=== PATIENT | female | born 1965 | race Caucasian/White ===

== ENCOUNTER 2024-10-29 10:17 | Inpatient (IN) | payer MEDICAID, MEDICARE ==
--- NOTE | 2024-10-29 11:07 | ED ---
General Adult HPI - General Chief complaint: Altered Mental Status Stated complaint: Mental health Time Seen by Provider: 10/29/24 10:38 Source: patient, family, RN notes reviewed Mode of arrival: ambulatory Limitations: altered mental status - History of Present Illness Initial comments: 59-year-old female presents to the emergency department with son for evaluation of altered mental status. Her family reports that about 3 weeks ago the patient was admitted to inpatient psychiatric treatment. They report that since she has been discharged at the end of September the patient continues to have altered mental status which seems to be worsening. Patient's family reports that the patient continues to make comments about "a man at the gas station" and they are unsure what she is referring to. She admits to hallucinations. - Related Data Home Medications Medication Instructions Recorded Confirmed Albuterol Inhaler [Ventolin Hfa 2 puff INHALATION RT-Q4H PRN 10/29/24 10/29/24 Inhaler] Atorvastatin [Lipitor] 20 mg PO HS 10/29/24 10/29/24 INSULIN LISPRO (HumaLOG) [humaLOG] 4 units SQ TID-W/MEALS 10/29/24 10/29/24 Insulin Glargine,Hum.rec.anlog 10 units SQ DAILY 10/29/24 10/29/24 [Lantus Solostar Pen] Levothyroxine Sodium [Synthroid] 75 mcg PO DAILY 10/29/24 10/29/24 Lurasidone [Latuda] 20 mg PO DAILY 10/29/24 10/29/24 cloZAPine [Clozaril] 150 mg PO DAILY 10/29/24 10/29/24 cloZAPine [Clozaril] 200 mg PO HS 10/29/24 10/29/24 clonazePAM [KlonoPIN] 0.5 mg PO TID 10/29/24 10/29/24 lisinopriL [Zestril] 10 mg PO DAILY 10/29/24 10/29/24 traZODone HCL [Desyrel] 50 mg PO HS 10/29/24 10/29/24 Allergies Allergy/AdvReac Type Severity Reaction Status Date / Time No Known Allergies Allergy Verified 10/29/24 16:01 Review of Systems ROS Statement: Those systems with pertinent positive or pertinent negative responses have been documented in the HPI. ROS Other: All systems not noted in ROS Statement are negative. Past Medical History Past Medical History: Diabetes Mellitus, Hyperlipidemia, Hypertension Past Surgical History: Appendectomy Past Psychological History: Schizophrenia Smoking Status: Current every day smoker Past Alcohol Use History: None Reported Past Drug Use History: None Reported General Exam Limitations: altered mental status General appearance: alert, in no apparent distress, anxious Head exam: Present: atraumatic, normocephalic, normal inspection Eye exam: Present: normal appearance, PERRL, EOMI. Absent: scleral icterus, conjunctival injection, periorbital swelling ENT exam: Present: normal exam, mucous membranes moist Respiratory exam: Present: normal lung sounds bilaterally. Absent: respiratory distress, wheezes, rales, rhonchi, stridor Cardiovascular Exam: Present: regular rate, normal rhythm, normal heart sounds. Absent: systolic murmur, diastolic murmur, rubs, gallop, clicks Extremities exam: Present: normal inspection, full ROM, normal capillary refill. Absent: tenderness, pedal edema, joint swelling, calf tenderness Neurological exam: Present: alert Psychiatric exam: Present: normal affect, normal mood Skin exam: Present: warm, dry, intact, normal color. Absent: rash Course Vital Signs 10/29/24 10/29/24 10:21 17:31 Temperature 97.3 F L 97.7 F Pulse Rate 116 H Pulse Rate [ 108 H Right] Respiratory 20 16 Rate Blood Pressure 115/60 Blood Pressure 136/58 [Left Arm] O2 Sat by Pulse 100 98 Oximetry Medical Decision Making - Medical Decision Making Was pt. sent in by a medical professional or institution ([facility], [facility], urgent care, hospital, or intermediate...) When possible be specific @ -No Did you speak to anyone other than the patient for history (EMS, parent, family, police, friend...)? What history was obtained from this source @ -No Did you review nursing and triage notes (agree or disagree)? Why? @ -I reviewed and agree with nursing and triage notes Were old charts reviewed (outside hosp., previous admission, EMS record, old EKG, old radiological studies, urgent care reports/EKG's, intermediate records)? Report findings @ -No old charts were reviewed Differential Diagnosis (chest pain, altered mental status, abdominal pain women, abdominal pain men, vaginal bleeding, weakness, fever, dyspnea, syncope, he adache, dizziness, GI bleed, back pain, seizure, CVA, palpatations, mental health, musculoskeletal)? @ -Differential Altered Mental Status: Hypoglycemia, DKA, hypercapnia, ETOH, overdose, CO poisoning, trauma, myxedema coma, HTN encephalopathy, infection, encephalitis, psychosis, intercranial hemo rrhage, hepatic encephalopathy, meningitis, CVA, this is not meant to be an all- inclusive list EKG interpreted by me (3pts min.). @ -None] X-rays interpreted by me (1pt min.). @ -None done CT interpreted by me (1pt min.). @ -CT brain shows no acute process U/S interpreted by me (1pt. min.). @ -None done What testing was considered but not performed or refused? (CT, X-rays, U/S, labs)? Why? @ -None What meds were considered but not given or refused? Why? @ -None Did you discuss the management of the patient with other professionals (professionals i.e. , PA, [employer]IP[employer]TER, lab, RT, psych nurse, social services technician, reading assistant, teacher, armed security officer, telephonic case manager)? Give summary @ -[Discussed case with EPS recommending inpatient treatment Was smoking cessation discussed for >3mins.? @ -No Was critical care preformed (if so, how long)? @ -No Were there social determinants of health that impacted care today? How? (Homelessness, low income, unemployed, alcoholism, drug addiction, transportation, low edu. Level, literacy, decrease access to med. care, care home, rehab)? @ -No Was there de-escalation of care discussed even if they declined (Discuss DNR or withdrawal of care, Hospice)? DNR status @ -No What co-morbidities impacted this encounter? (DM, HTN, Smoking, COPD, CAD, Cancer, CVA, ARF, Chemo, Hep., AIDS, mental health diagnosis, sleep apnea, morbid obesity)? @ -None Was patient admitted / discharged? Hospital course, mention meds given and route, prescriptions, significant lab abnormalities, going to OR and other pertinent info. @ -Admitted to psychiatric unit. Patient presented to the emergency department for confusion and hallucinations. Laboratory studies obtainedIncluding CBC, CMP, UA showing no actionable abnormality UA shows no evidence of infectious process. Urine drug screen positive for benzodiazepines. CT brain was obtained showing no acute process. Because the patient symptomatology patient was evaluated by EPS after being medically cleared. Inpatient treatment was recommended. Case discussed with Dr. Lopez. Undiagnosed new problem with uncertain prognosis? @ -No Drug Therapy requiring intensive monitoring for toxicity (Heparin, Nitro, Insulin, Cardizem)? @ -No Were any procedures done? @ -No Diagnosis/symptom? @ -Acute psychosis Acute, or Chronic, or Acute on Chronic? @ -Acute Uncomplicated (without systemic symptoms) or Complicated (systemic symptoms)? @ -Application Side effects of treatment? @ -No Exacerbation, Progression, or Severe Exacerbation? @ -No Poses a threat to life or bodily function? How? (Chest pain, [place], [place], pneumonia, PE, COPD, DKA, ARF, appy, cholecystitis, CVA, Diverticulitis, Homicidal, Suicidal, threat to staff... and all critical care pts) @ -No - Lab Data Result diagrams: 10/29/24 12:13 10/29/24 12:13 Lab Results 10/29/24 10/29/24 10/29/24 Range/Units 11:20 11:20 12:13 WBC 8.6 (3.8-10.6) k/uL RBC 4.03 (3.80-5.40) m/uL Hgb 12.5 (11.4-16.0) gm/dL Hct 37.5 (34.0-46.0) % MCV 93.0 (80.0-100.0) fL MCH 31.0 (25.0-35.0) pg MCHC 33.4 (31.0-37.0) g/dL RDW 12.9 (11.5-15.5) % Plt Count 327 (150-450) k/uL MPV 6.8 Neutrophils % 75 % Lymphocytes % 18 % Monocytes % 5 % Eosinophils % 1 % Basophils % 1 % Neutrophils # 6.4 (1.3-7.7) k/uL Lymphocytes # 1.6 (1.0-4.8) k/uL Monocytes # 0.4 (0-1.0) k/uL Eosinophils # 0.1 (0-0.7) k/uL Basophils # 0.0 (0-0.2) k/uL PT (10.0-12.5) sec INR (<1.2) APTT (22.0-30.0) sec Sodium (137-145) mmol/L Potassium (3.5-5.1) mmol/L Chloride (98-107) mmol/L Carbon Dioxide (22-30) mmol/L Anion Gap mmol/L BUN (7-17) mg/dL Creatinine (0.52-1.04) mg/dL Est GFR (CKD-EPI)AfAm (>60 ml/min/1.73 sqM) Est GFR (CKD-EPI)NonAf (>60 ml/min/1.73 sqM) Glucose (74-99) mg/dL Estimated Ave Glu mg/dL mg/dL Hemoglobin A1c (<=6.0) % Calcium (8.4-10.2) mg/dL Total Bilirubin (0.2-1.3) mg/dL AST (14-36) U/L ALT (4-34) U/L Alkaline Phosphatase (38-126) U/L Total Protein (6.3-8.2) g/dL Albumin (3.5-5.0) g/dL Triglycerides (0.00-149.00) mg/dL Cholesterol (0.00-200.00) mg/dL LDL Cholesterol, Calc (0.0-131.0) mg/dL VLDL Cholesterol, Calc (5.00-40.00) mg/dL HDL Cholesterol (40.00-60.00) mg/dL Cholesterol/HDL Ratio Ratio TSH (0.465-4.680) mIU/L Urine Color Colorless Urine Appearance Clear (Clear) Urine pH 6.0 (5.0-8.0) Ur Specific [place] 1.003 (1.001-1.035) Urine Protein Negative (Negative) Urine Glucose (UA) 4+ H (Negative) Urine Ketones Negative (Negative) Urine Blood Negative (Negative) Urine Nitrite Negative (Negative) Urine Bilirubin Negative (Negative) Urine Urobilinogen <2.0 (<2.0) mg/dL Ur Leukocyte Esterase Negative (Negative) Urine Opiates Screen Not Detected (NotDetected) Ur Oxycodone Screen Not Detected (NotDetected) Urine Methadone Screen Not Detected (NotDetected) Ur Barbiturates Screen Not Detected (NotDetected) U Tricyclic Antidepress Not Detected (NotDetected) Ur Phencyclidine Scrn Not Detected (NotDetected) Ur Amphetamines Screen Not Detected (NotDetected) U Methamphetamines Scrn Not Detected (NotDetected) U Benzodiazepines Scrn Detected H (NotDetected) Urine Cocaine Screen Not Detected (NotDetected) U Marijuana (THC) Screen Not Detected (NotDetected) SARS-CoV-2 (PCR) (Not Detectd) 10/29/24 10/29/24 10/29/24 Range/Units 12:13 12:13 12:13 WBC (3.8-10.6) k/uL RBC (3.80-5.40) m/uL Hgb (11.4-16.0) gm/dL Hct (34.0-46.0) % MCV (80.0-100.0) fL MCH (25.0-35.0) pg MCHC (31.0-37.0) g/dL RDW (11.5-15.5) % Plt Count (150-450) k/uL MPV Neutrophils % % Lymphocytes % % Monocytes % % Eosinophils % % Basophils % % Neutrophils # (1.3-7.7) k/uL Lymphocytes # (1.0-4.8) k/uL Monocytes # (0-1.0) k/uL Eosinophils # (0-0.7) k/uL Basophils # (0-0.2) k/uL PT 10.4 (10.0-12.5) sec INR 0.9 (<1.2) APTT 21.7 L (22.0-30.0) sec Sodium 135 L (137-145) mmol/L Potassium 4.6 (3.5-5.1) mmol/L Chloride 105 (98-107) mmol/L Carbon Dioxide 20 L (22-30) mmol/L Anion Gap 10 mmol/L BUN 10 (7-17) mg/dL Creatinine 0.88 (0.52-1.04) mg/dL Est GFR (CKD-EPI)AfAm 83 (>60 ml/min/1.73 sqM) Est GFR (CKD-EPI)NonAf 72 (>60 ml/min/1.73 sqM) Glucose 284 H (74-99) mg/dL Estimated Ave Glu mg/dL 177 mg/dL Hemoglobin A1c 7.8 H (<=6.0) % Calcium 9.6 (8.4-10.2) mg/dL Total Bilirubin 0.7 (0.2-1.3) mg/dL AST 22 (14-36) U/L ALT 43 H (4-34) U/L Alkaline Phosphatase 131 H (38-126) U/L Total Protein 6.2 L (6.3-8.2) g/dL Albumin 4.1 (3.5-5.0) g/dL Triglycerides (0.00-149.00) mg/dL Cholesterol (0.00-200.00) mg/dL LDL Cholesterol, Calc (0.0-131.0) mg/dL VLDL Cholesterol, Calc (5.00-40.00) mg/dL HDL Cholesterol (40.00-60.00) mg/dL Cholesterol/HDL Ratio Ratio TSH 0.721 (0.465-4.680) mIU/L Urine Color Urine Appearance (Clear) Urine pH (5.0-8.0) Ur Specific [place] (1.001-1.035) Urine Protein (Negative) Urine Glucose (UA) (Negative) Urine Ketones (Negative) Urine Blood (Negative) Urine Nitrite (Negative) Urine Bilirubin (Negative) Urine Urobilinogen (<2.0) mg/dL Ur Leukocyte Esterase (Negative) Urine Opiates Screen (NotDetected) Ur Oxycodone Screen (NotDetected) Urine Methadone Screen (NotDetected) Ur Barbiturates Screen (NotDetected) U Tricyclic Antidepress (NotDetected) Ur Phencyclidine Scrn (NotDetected) Ur Amphetamines Screen (NotDetected) U Methamphetamines Scrn (NotDetected) U Benzodiazepines Scrn (NotDetected) Urine Cocaine Screen (NotDetected) U Marijuana (THC) Screen (NotDetected) SARS-CoV-2 (PCR) (Not Detectd) 10/29/24 10/29/24 Range/Units 12:13 15:54 WBC (3.8-10.6) k/uL RBC (3.80-5.40) m/uL Hgb (11.4-16.0) gm/dL Hct (34.0-46.0) % MCV (80.0-100.0) fL MCH (25.0-35.0) pg MCHC (31.0-37.0) g/dL RDW (11.5-15.5) % Plt Count (150-450) k/uL MPV Neutrophils % % Lymphocytes % % Monocytes % % Eosinophils % % Basophils % % Neutrophils # (1.3-7.7) k/uL Lymphocytes # (1.0-4.8) k/uL Monocytes # (0-1.0) k/uL Eosinophils # (0-0.7) k/uL Basophils # (0-0.2) k/uL PT (10.0-12.5) sec INR (<1.2) APTT (22.0-30.0) sec Sodium (137-145) mmol/L Potassium (3.5-5.1) mmol/L Chloride (98-107) mmol/L Carbon Dioxide (22-30) mmol/L Anion Gap mmol/L BUN (7-17) mg/dL Creatinine (0.52-1.04) mg/dL Est GFR (CKD-EPI)AfAm (>60 ml/min/1.73 sqM) Est GFR (CKD-EPI)NonAf (>60 ml/min/1.73 sqM) Glucose (74-99) mg/dL Estimated Ave Glu mg/dL mg/dL Hemoglobin A1c (<=6.0) % Calcium (8.4-10.2) mg/dL Total Bilirubin (0.2-1.3) mg/dL AST (14-36) U/L ALT (4-34) U/L Alkaline Phosphatase (38-126) U/L Total Protein (6.3-8.2) g/dL Albumin (3.5-5.0) g/dL Triglycerides 122.00 (0.00-149.00) mg/dL Cholesterol 100.00 (0.00-200.00) mg/dL LDL Cholesterol, Calc 24.0 (0.0-131.0) mg/dL VLDL Cholesterol, Calc 24.40 (5.00-40.00) mg/dL HDL Cholesterol 51.60 (40.00-60.00) mg/dL Cholesterol/HDL Ratio 1.94 Ratio TSH (0.465-4.680) mIU/L Urine Color Urine Appearance (Clear) Urine pH (5.0-8.0) Ur Specific [place] (1.001-1.035) Urine Protein (Negative) Urine Glucose (UA) (Negative) Urine Ketones (Negative) Urine Blood (Negative) Urine Nitrite (Negative) Urine Bilirubin (Negative) Urine Urobilinogen (<2.0) mg/dL Ur Leukocyte Esterase (Negative) Urine Opiates Screen (NotDetected) Ur Oxycodone Screen (NotDetected) Urine Methadone Screen (NotDetected) Ur Barbiturates Screen (NotDetected) U Tricyclic Antidepress (NotDetected) Ur Phencyclidine Scrn (NotDetected) Ur Amphetamines Screen (NotDetected) U Methamphetamines Scrn (NotDetected) U Benzodiazepines Scrn (NotDetected) Urine Cocaine Screen (NotDetected) U Marijuana (THC) Screen (NotDetected) SARS-CoV-2 (PCR) Not Detected (Not Detectd) Disposition Clinical Impression: Acute psychosis Disposition: TRANSFER TO PSYCH HOSP/UNIT Condition: Stable Is patient prescribed a controlled substance at d/c from ED?: No
[2024-10-29 11:26] LABS: Appearance,Urine Clear (Clear); Bilirubin,Urine Negative (Negative); Blood,Urine Negative (Negative); Color,Urine Colorless; Glucose,Urine (UA) 4+ (Negative); Ketones,Urine Negative (Negative); Leukocyte Esterase,Urine Negative (Negative); Nitrite,Urine Negative (Negative); Protein,Urine Negative (Negative); Specific Gravity,Urine 1.003 (1.001-1.035); Urobilinogen,Urine <2.0 mg/dL (<2.0)
[2024-10-29 11:36] LABS: Amphetamine Screen,Urine Not Detected (NotDetected); Barbiturate Screen,Urine Not Detected (NotDetected); Benzodiazepines Screen,Urine Detected (NotDetected); Cocaine Screen,Urine Not Detected (NotDetected); Methadone Screen, Urine Not Detected (NotDetected); Opiate Screen,Urine Not Detected (NotDetected); Oxycodone Screen, Urine Not Detected (NotDetected); Phencyclidine Screen,Urine Not Detected (NotDetected); Tricyclic Antidepressant,Urine Not Detected (NotDetected); Urn Cannabinoid Scrn Not Detected (NotDetected)
--- NOTE | 2024-10-29 11:39 | CT ---
EXAMINATION TYPE: CT brain wo con DATE OF EXAM: 10/29/2024 11:35 AM COMPARISON: None. CLINICAL INDICATION: Female, 59 years old with history of Altered mental status, ams TECHNIQUE: CT of the brain is performed utilizing 3 mm thick sections through the posterior fossa and 3 mm thick sections through the remaining calvarium. Study is performed within 24 hours of arrival to the hospital. Contrast used: mL of , (none if empty) CT DLP: 1125.4 mGycm, Automated exposure control for dose reduction was used. FINDINGS: No abnormal hyperdensity is present to suggest an acute intracranial hemorrhage. No mass lesion is evident. No acute infarcts are evident. Ventricles and sulci are mildly prominent for the patient age compatible some age-related atrophy. Paranasal sinuses and mastoid air cells within the [id number] are clear. IMPRESSION: 1. No acute intracranial process. Follow up MRI can be performed as clinically indicated. 2. Mild age-related atrophy [facility], , 10/29/2024 11:37 AM
[2024-10-29 12:18] LABS: Basophils % (A) 1 %; Eosinophils # (A) 0.1 k/uL (0-0.7); Eosinophils % (A) 1 %; HCT 37.5 % (34.0-46.0); HGB 12.5 gm/dL (11.4-16.0); Lymphocytes # (A) 1.6 k/uL (1.0-4.8); Lymphocytes % (A) 18 %; MCHC 33.4 g/dL (31.0-37.0); Mean Platelet Volume 6.8; Monocytes # (A) 0.4 k/uL (0-1.0); Monocytes % (A) 5 %; Neutrophils # (A) 6.4 k/uL (1.3-7.7); Neutrophils % (A) 75 %; Platelet Count 327 k/uL (150-450); RBC 4.03 m/uL (3.80-5.40); RDW 12.9 % (11.5-15.5); WBC 8.6 k/uL (3.8-10.6)
[2024-10-29 12:34] LABS: ALT 43 U/L (4-34); AST 22 U/L (14-36); African American GFR (CKD) 83 (>60 ml/min/1.73 sqM); Albumin 4.1 g/dL (3.5-5.0); Alkaline Phosphatase 131 U/L (38-126); Anion Gap 10 mmol/L; Blood Urea Nitrogen 10 mg/dL (7-17); Calcium 9.6 mg/dL (8.4-10.2); Carbon Dioxide 20 mmol/L (22-30); Chloride 105 mmol/L (98-107); Glucose 284 mg/dL (74-99); Non-African American GFR(CKD) 72 (>60 ml/min/1.73 sqM); Potassium 4.6 mmol/L (3.5-5.1); Sodium 135 mmol/L (137-145); Total Bilirubin 0.7 mg/dL (0.2-1.3); Total Protein 6.2 g/dL (6.3-8.2)
[2024-10-29 12:35] LABS: INR 0.9 (<1.2); Partial Thromboplastin Time 21.7 sec (22.0-30.0); Prothrombin Time 10.4 sec (10.0-12.5)
[2024-10-29] MEDS ORDERED: MAGNESIUM HYDROXIDE 2,400 MG/30 ML CUP PO PRN (17:32)
[2024-10-29] MEDS ORDERED: MAG HYDROX/AL HYDROX/SIMETH 355 ML BOTTLE PO PRN (17:32)
[2024-10-29] MEDS ORDERED: HALOPERIDOL LACTATE 5 MG/ML 1 ML VIAL IM PRN (17:32)
[2024-10-29] MEDS ORDERED: ALBUTEROL INHALER 60 PUFF/8 GM INHALER (MHU) INHALATION PRN (17:35)
[2024-10-29] MEDS: clonazePAM 0.5 MG TAB PO SCH (18:53)
[2024-10-29] MEDS: INSULIN ASPART (NovoLOG) 100 UNIT/ML VIAL SQ SCH (18:53)
[2024-10-29 20:22] LABS: Glucose,Whole Blood 270 mg/dL (70-110)
[2024-10-29] MEDS: ATORVASTATIN 20 MG TAB PO SCH (20:25)
[2024-10-29] MEDS: traZODone HCL 50 MG TAB PO SCH (20:25)
[2024-10-29] MEDS: cloZAPine 100 MG TAB PO SCH (20:26)
[2024-10-29] MEDS: haloperidoL 5 MG TAB PO PRN (21:45)
[2024-10-30] MEDS: LEVOTHYROXINE 75 MCG TAB PO SCH (06:30)
[2024-10-30] MEDS: INSULIN ASPART (NovoLOG) 100 UNIT/ML VIAL SQ SCH (08:06)
[2024-10-30 08:07] LABS: Glucose,Whole Blood 219 mg/dL (70-110)
[2024-10-30] MEDS: cloZAPine 100 MG TAB PO SCH (08:08)
[2024-10-30] MEDS: LURASIDONE 20 MG TAB PO SCH (08:08)
[2024-10-30] MEDS: INSULIN DETEMIR (LEVEMIR) 100 UNIT/ML SYR SQ SCH (08:08)
[2024-10-30] MEDS: lisinopriL 10 MG TAB PO SCH (08:08)
--- NOTE | 2024-10-30 10:43 | P.HP ---
Psychiatric H&P - . H&P Date: 10/30/24 History & Physical: Allergies Allergy/AdvReac Type Severity Reaction Status Date / Time No Known Allergies Allergy Verified 10/29/24 16:01 Vital Signs Temp 98 F 10/30/24 07:05 Pulse 74 10/30/24 07:05 Resp 16 10/29/24 17:31 BP 101/62 10/30/24 07:05 Pulse Ox 98 10/30/24 07:05 FiO2 Intake & Output 10/29/24 10/30/24 10/30/24 18:59 06:59 18:59 Weight 73.346 kg Laboratory Last Values WBC 8.6 k/uL (3.8-10.6) 10/29/24 12:13 RBC 4.03 m/uL (3.80-5.40) 10/29/24 12:13 Hgb 12.5 gm/dL (11.4-16.0) 10/29/24 12:13 Hct 37.5 % (34.0-46.0) 10/29/24 12:13 MCV 93.0 fL (80.0-100.0) 10/29/24 12:13 MCH 31.0 pg (25.0-35.0) 10/29/24 12:13 MCHC 33.4 g/dL (31.0-37.0) 10/29/24 12:13 RDW 12.9 % (11.5-15.5) 10/29/24 12:13 Plt Count 327 k/uL (150-450) 10/29/24 12:13 MPV 6.8 10/29/24 12:13 Neutrophils % 75 % 10/29/24 12:13 Lymphocytes % 18 % 10/29/24 12:13 Monocytes % 5 % 10/29/24 12:13 Eosinophils % 1 % 10/29/24 12:13 Basophils % 1 % 10/29/24 12:13 Neutrophils # 6.4 k/uL (1.3-7.7) 10/29/24 12:13 Lymphocytes # 1.6 k/uL (1.0-4.8) 10/29/24 12:13 Monocytes # 0.4 k/uL (0-1.0) 10/29/24 12:13 Eosinophils # 0.1 k/uL (0-0.7) 10/29/24 12:13 Basophils # 0.0 k/uL (0-0.2) 10/29/24 12:13 PT 10.4 sec (10.0-12.5) 10/29/24 12:13 INR 0.9 (<1.2) 10/29/24 12:13 APTT 21.7 sec (22.0-30.0) L 10/29/24 12:13 Sodium 135 mmol/L (137-145) L 10/29/24 12:13 Potassium 4.6 mmol/L (3.5-5.1) 10/29/24 12:13 Chloride 105 mmol/L (98-107) 10/29/24 12:13 Carbon Dioxide 20 mmol/L (22-30) L 10/29/24 12:13 Anion Gap 10 mmol/L 10/29/24 12:13 BUN 10 mg/dL (7-17) 10/29/24 12:13 Creatinine 0.88 mg/dL (0.52-1.04) 10/29/24 12:13 Est GFR (CKD-EPI)AfAm 83 (>60 ml/min/1.73 sqM) 10/29/24 12:13 Est GFR (CKD-EPI)NonAf 72 (>60 ml/min/1.73 sqM) 10/29/24 12:13 Glucose 284 mg/dL (74-99) H 10/29/24 12:13 POC Glucose (mg/dL) 270 mg/dL (70-110) H 10/29/24 20:21 POC Glu Security Incident Handler ID Macy Mary 10/29/24 20:21 Calcium 9.6 mg/dL (8.4-10.2) 10/29/24 12:13 Total Bilirubin 0.7 mg/dL (0.2-1.3) 10/29/24 12:13 AST 22 U/L (14-36) 10/29/24 12:13 ALT 43 U/L (4-34) H 10/29/24 12:13 Alkaline Phosphatase 131 U/L (38-126) H 10/29/24 12:13 Total Protein 6.2 g/dL (6.3-8.2) L 10/29/24 12:13 Albumin 4.1 g/dL (3.5-5.0) 10/29/24 12:13 TSH 0.721 mIU/L (0.465-4.680) 10/29/24 12:13 Urine Color Colorless 10/29/24 11:20 Urine Appearance Clear (Clear) 10/29/24 11:20 Urine pH 6.0 (5.0-8.0) 10/29/24 11:20 Ur Specific Arvin 1.003 (1.001-1.035) 10/29/24 11:20 Urine Protein Negative (Negative) 10/29/24 11:20 Urine Glucose (UA) 4+ (Negative) H 10/29/24 11:20 Urine Ketones Negative (Negative) 10/29/24 11:20 Urine Blood Negative (Negative) 10/29/24 11:20 Urine Nitrite Negative (Negative) 10/29/24 11:20 Urine Bilirubin Negative (Negative) 10/29/24 11:20 Urine Urobilinogen <2.0 mg/dL (<2.0) 10/29/24 11:20 Ur Leukocyte Esterase Negative (Negative) 10/29/24 11:20 Urine Opiates Screen Not Detected (NotDetected) 10/29/24 11:20 Ur Oxycodone Screen Not Detected (NotDetected) 10/29/24 11:20 Urine Methadone Screen Not Detected (NotDetected) 10/29/24 11:20 Ur Barbiturates Screen Not Detected (NotDetected) 10/29/24 11:20 U Tricyclic Antidepress Not Detected (NotDetected) 10/29/24 11:20 Ur Phencyclidine Scrn Not Detected (NotDetected) 10/29/24 11:20 Ur Amphetamines Screen Not Detected (NotDetected) 10/29/24 11:20 U Methamphetamines Scrn Not Detected (NotDetected) 10/29/24 11:20 U Benzodiazepines Scrn Detected (NotDetected) H 10/29/24 11:20 Urine Cocaine Screen Not Detected (NotDetected) 10/29/24 11:20 U Marijuana (THC) Screen Not Detected (NotDetected) 10/29/24 11:20 SARS-CoV-2 (PCR) Not Detected (Not Detectd) 10/29/24 15:54 10/30/24 08:03 Dictation was produced using dragon dictation software. Please excuse any grammatical, word or spelling errors. IDENTIFYING DATA: Patient is a 59 years old female with past psychiatric history of schizophrenia presented to the ER with her son for altered mental status evaluation. HPI: Patient presented to the hospital with her son for altered mental status evaluation. Family were concerned about anxiety and hallucination, patient reported that she has been having increase in anxiety, disorganized thought process was noted throughout the interview, she required frequent redirection. Reported that there is someone at the gas station " follows me around with piercing eyes." Denied suicidal, homicidal thoughts or behavior, denied auditory or visual hallucination. The patient family reported that about 3 weeks ago patient was admitted to inpatient psychiatric hospital, and she was discharged at the end of September, reported that since then patient mental status has been worsening. They reported that she was making a comment about " a man at the gas station" and they was not sure what she was referring to. Report patient medication was adjusted during the last hospitalization, Latuda was discontinued and she was started on risperidone however that was not helping and had outpatient psychiatrist restart her back on Latuda 20 mg and discontinued risperidone. They kept her on clozapine 150 mg daily and 200 mg at night which she has been compliant with per report. Upon evaluation in the unit patient was at the nurses station asking them to talk to her , she was fixated on talking to her and to "Dr. Suazo" she claimed to be her outpatient psychiatrist. The patient was redirected and agreed to speak with the principal technical writer in the office. She states that "I can't tell you, I want to talk to Dr. Tanner, I'm loosing my mind, everyone staring at me." The patient was reassured about her safety. She states that her and her son brought her into the hospital yesterday since " I was losing my mind" and she could not elaborate more on that. She states " I have ECT scheduled" and could not elaborate on that as well and reported she had multiple "shock therapy" in the past. States that she has been taking her medication and reported her to give it to her every day. Reported that she has been feeling down, depressed, reported her sleep to be not that great, admitted to good appetite, she denied any current suicidal, self- harm or homicidal thoughts or behavior. Denied any previous history of suicide. Patient was so paranoid and reported that she has been hearing her own thoughts for all of her life, reported that her will know more. The patient was fixated on calling her , she stood up multiple times and wanted to use the phone to talk to her . Thought process was circumstantial, nonsensical and illogical. Patient was repeating some of the statements over and over " I see you, I see you" " I want to speak to my doctor, I want to speak to my doctor." The patient was oriented to place, person. The patient was irritated and stood up and was fixated on calling her and the interview was concluded at that time. She seemed to be confused and disorganized. Reported that she has been smoking half a pack for years, she denied using any licit substance, cannabis or alcohol. PAST PSYCHIATRIC HISTORY: - Inpatient Hospitalizations: Reported that she was hospitalized multiple times in the past, per report hospitalization was 3 weeks ago - Outpatient Care: pt reported that she has been seeing "Dr. Suazo" and she could not tell what facility they work for - Current Psychotropics: Clozapine 150 mg p.o. daily, 200 mg at bedtime, Latuda 20 mg p.o. daily, Klonopin 0.5 mg 3 times daily, trazodone 50 mg at bedtime. The patient medication was confirmed with her family on admission and they reported she has been compliant with her medication. - Prior Psychotropics/Therapy: Patient reported that she had multiple shock therapy in the past - Prior Psychiatric dx: Schizophrenia - Suicidal Attempts: Patient denied any previous suicidal attempts PMH: as per ER note Past Medical History: Diabetes Mellitus, Hyperlipidemia, Hypertension Past Surgical History: Appendectomy Past Psychological History: Schizophrenia Smoking Status: Current every day smoker Past Alcohol Use History: None Reported Past Drug Use History: None Reported ALLERGIES: as per EMR CHEMICAL DEPENDENCY HISTORY: as per HPI - Tobacco: Patient reported that she smoked few cigarettes every now and then - Alcohol: Patient denies - Illicit Drugs: Patient denies - Cannabis: Patient denies FAMILY PSYCHIATRIC/SUBSTANCE USE HISTORY: Patient reported that most of her family has schizophrenia and bipolar disorder. SOCIAL HISTORY: Patient was born and raised in [facility]. for 37 years, has 3 adult children and 2 grandchildren. Dropped out at 10th grade. 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 MENTAL STATUS EXAM: General Appearance: Patient appears to be older than stated age is alert, the patient was uncooperative, required multiple redirection, interview was terminated early since patient was fixated on calling her . Patient appears to have fair hygiene and grooming. Behavior: Patient is seated, she stood up multiple times, irritable, fixated on calling her and her outpatient doctor, has bizarre and disorganized behavior Speech: Patient's speech is fluent and nonpressured. She was repeating certain statements at time Mood/Affect: Patient reports their mood is " I am losing my mind," affect is labile, congruent and constricted. Suicidality/Homicidality: Patient denies having any homicidal ideation intent or plan. Denies any suicidal ideations intent or plan Perceptions: Patient denies any visual hallucinations and denies any auditory hallucinations, however she reported that she has been hearing her own thoughts for years Though content/process: Thought process is circumstantial, illogical and nonsensical, patient has disorganized and bizarre thought content, delusional at time and paranoid Memory and concentration: AOX2, grossly intact for the purposes of this session. Can not spell "WORLD" backwards Judgment and insight: poor STRENGTHS/WEAKNESSES: strength is that patient is resilient. Weakness is that patient has poor judgment and is impulsive INTELLECT: average IMPRESSIONS: Patient is a 59 years old female with past psychiatric history of schizophrenia presented to the ER with her son for altered mental status evaluation. The patient was admitted after family has been concerned about her progress, she has been demonstrating bizarre, disorganized thoughts and behavior. Thought process is circumstantial, illogical and nonsensical. The patient reported a history of ECT in the past. Family confirmed her current medication which include clozapine, Latuda and Klonopin which she has been compliant with. She has a reported history of multiple inpatient psychiatric hospitalization, and she has a reported history of schizophrenia. -Schizophrenia PLAN: -Patient is admitted under voluntary status to MHU for stabilization of psychiatric symptoms and safety. Patient has signed adult voluntary form and medication consent and is placed in patient's chart. We will monitor for the patient compliance with medication and may consider involuntary status if needed. -Medications : Will continue home medication which include Clozapine 150 mg p.o. daily, and 200 mg at bedtime Latuda 20 mg p.o. daily Klonopin 0.5 mg 3 times daily Trazodone 50 mg p.o. at bedtime - Haldol PRN for agitation/aggression -Patient was informed of the risks, benefits and side effects of the medication and patient verbally consented to taking the medications. Patient signed med consent form and was placed in chart. -Collateral information from the patient and family and her outpatient team will be helpful -Labs ordered, clozapine level still pending -Internal Medicine consult to perform medical evaluation and physical. -NRT - not needed as patient does not smoke -SW on board for discharge planning. Encourage patient to participate in groups to work on coping skills. 10/30/24 10:40
[2024-10-30 11:31] LABS: Chol/HDL Ratio 1.94 Ratio
[2024-10-30 12:40] LABS: Glucose,Whole Blood 296 mg/dL (70-110)
--- NOTE | 2024-10-30 14:59 | P.CONS ---
History of Present Illness - Reason for Consult Consult date: 10/30/24 Medical management Requesting physician: Emanuel Braswell - Chief Complaint Confused - History of Present Illness 59-year-old patient, follows with Dr. Smita June. Medical conditions include diabetes, hyperlipidemia, hypertension, hypothyroid. Also known history of bipolar schizophrenia. Smokes about half a pack a day Patient was brought into the ER by the family. Patient is rather disorganized thought. Wean from 1 topic to the other not making sense. As per the psychiatry notes patient interview had to be stopped because of the same. For me patient is able to answer simple questions. Does use albuterol inhaler as needed. Since missing her cigarettes. Wants to smoke outside. Appetite is fair. Sleeps quite a bit. Denies any pain. No fever no chills. Occasional cough. No respiratory symptoms otherwise. Review of systems: GEN.: Tired EYES: None HEENT: None NECK: None RESPIRATORY: As above] CARDIOVASCULAR: None GASTROINTESTINAL: None GENITOURINARY: None MUSCULOSKELETAL: None LYMPHATICS: None HEMATOLOGICAL: None PSYCHIATRY: Anxious, disordered thoughts NEUROLOGICAL: None Social history: Lives with the . 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 Smokes half a pack a day. Physical examination: VITAL SIGNS: 98, 74, 16, 101 x 62, 98% room air GENERAL: BMI 25.3, laying in bed awake comfortable. EYES: Pupils equal. Conjunctiva zeynep l. HEENT: External appearance of nose and ears normal, oral cavity grossly normal. NECK: JVD not raised; masses not palpable. HEART: First and second heart sounds are normal; no edema. LUNGS: Respiratory rate normal; clear to auscultation. ABDOMEN: Soft, nontender, liver spleen not palpable, no masses palpable. PSYCH: Patient currently able to hold a simple conversation. Referred to Dr. Ellis in. More detailed examination per psychiatry. l. MUSCULOSKELETAL:No Clubbing/cyanosis;muscles-grossly intact NEUROLOGICAL: Cranial nerves grossly intact; no facial asymmetry, power and sensation grossly intact. LYMPHATICS: No lymph nodes palpable in the axilla and neck INVESTIGATIONS, reviewed in the clinical context: October 29, 2024: White count 8.6 hemoglobin 12.5 platelets 327 sodium 135 potassium 4.6 creatinine 0.88 LDL 24 TSH 0.7 COVID-19 PCR not detected Assessment plan: -Schizophrenia with progression Medications per psychiatry -Chronic nicotine dependence, cigarette smoker Nicotine patch half a pack a day Diabetes mellitus type 2 chronically on insulin Patient on Lantus and Humalog scheduled. Follow Accu-Cheks sliding scale -Hyperlipidemia Lipitor 20 mg nightly -Hypothyroid Synthroid 75 mcg a day -Essential hypertension Zestril 10 mg a day Care was discussed with patient. Questions answered. Thank you Dr. Braswell Past Medical History Past Medical History: Diabetes Mellitus, Hyperlipidemia, Hypertension, Thyroid Disorder History of Any Multi-Drug Resistant Organisms: None Reported Past Surgical History: Appendectomy Past Anesthesia/Blood Transfusion Reactions: No Reported Reaction Smoking Status: Current every day smoker Medications and Allergies Home Medications Medication Instructions Recorded Confirmed Type Albuterol Inhaler [Ventolin Hfa 2 puff INHALATION RT-Q4H PRN 10/29/24 10/29/24 History Inhaler] Atorvastatin [Lipitor] 20 mg PO HS 10/29/24 10/29/24 History INSULIN LISPRO (HumaLOG) [humaLOG] 4 units SQ TID-W/MEALS 10/29/24 10/29/24 History Insulin Glargine,Hum.rec.anlog 10 units SQ DAILY 10/29/24 10/29/24 History [Lantus Solostar Pen] Levothyroxine Sodium [Synthroid] 75 mcg PO DAILY 10/29/24 10/29/24 History Lurasidone [Latuda] 20 mg PO DAILY 10/29/24 10/29/24 History cloZAPine [Clozaril] 150 mg PO DAILY 10/29/24 10/29/24 History cloZAPine [Clozaril] 200 mg PO HS 10/29/24 10/29/24 History clonazePAM [KlonoPIN] 0.5 mg PO TID 10/29/24 10/29/24 History lisinopriL [Zestril] 10 mg PO DAILY 10/29/24 10/29/24 History traZODone HCL [Desyrel] 50 mg PO HS 10/29/24 10/29/24 History Allergies Allergy/AdvReac Type Severity Reaction Status Date / Time No Known Allergies Allergy Verified 10/29/24 16:01 Physical Exam Vitals: Vital Signs Temp Pulse Resp BP Pulse Ox 10/30/24 07:05 98 F 74 101/62 98 10/29/24 17:31 97.7 F 108 H 16 136/58 98 Intake and Output 10/29/24 10/30/24 10/30/24 22:59 06:59 14:59 Other: Weight 73.346 kg Results CBC & Chem 7: 10/29/24 12:13 10/29/24 12:13 Labs: Abnormal Lab Results - Last 24 Hours (Table) 10/29/24 10/29/24 10/30/24 Range/Units 12:13 20:21 08:05 POC Glucose (mg/dL) 270 H 219 H (70-110) mg/dL Hemoglobin A1c 7.8 H (<=6.0) % 10/30/24 Range/Units 12:38 POC Glucose (mg/dL) 296 H (70-110) mg/dL Hemoglobin A1c (<=6.0) %
[2024-10-30] MEDS: NICOTINE 14MG/24HR PATCH TRANSDERM SCH (15:19)
[2024-10-30 17:45] LABS: Glucose,Whole Blood 177 mg/dL (70-110)
[2024-10-30 20:05] LABS: Glucose,Whole Blood 240 mg/dL (70-110)
[2024-10-31 07:24] LABS: Clozapine (Clozaril) 575 ng/mL (200-700); Norclozapine 494 ng/mL (200-700)
[2024-10-31 07:56] LABS: Glucose,Whole Blood 186 mg/dL (70-110)
[2024-10-31] MEDS: INSULIN DETEMIR (LEVEMIR) 100 UNIT/ML SYR SQ SCH (09:59)
--- NOTE | 2024-10-31 12:18 | P.PN ---
Progress Note - Text Progress Note Date: 10/31/24 Interval history: Patient was seen today laying in bed agreeable to speak to functional tester typewriters. She was fa irly talkative today, she was somewhat intrusive asking functional tester typewriters a lot of personal questions. Refusing to answer some questions. She had fairly poor insight poor judgment. Believes that she came to the hospital "for anxiety". She was alert and oriented x 2-3, did not noted a specific date. She did admit to recently being hospitalized and in a different psychiatric unit. She kept on the right a sking functional tester typewriters if he was another doctor's "corporate intern". She was over familiar with functional tester typewriters. Fairly talkative today. Claims that she is sleeping fairly, claims that she is taking her medications. Denied any auditory or visual hallucinations. Denied any suicidal homicidal ideations intent or plan. MENTAL STATUS EXAM: General Appearance: Patient appears to be older than stated age is alert, the patient was attempting to cooperate cooperative, required multiple redirection, interview was terminated early since patient was fixated on calling her . Patient appears to have fair hygiene and grooming. Behavior: Patient is laying in bed, has bizarre and disorganized behavior. [place] friendly Speech: Patient's speech is fluent and nonpressured. Fairly talkative Mood/Affect: Patient reports their mood is "ok" affect is labile, congruent Suicidality/Homicidality: Patient denies having any homicidal ideation intent or plan. Denies any suicidal ideations intent or plan Perceptions: Patient denies any visual hallucinations and denies any auditory hallucinations Though content/process: Thought process is circumstantial, illogical, patient has disorganized and bizarre thought content, intrusive at times Memory and concentration: AOX2-3, grossly intact for the purposes of this session. Can not spell "WORLD" backwards Judgment and insight: poor IMPRESSIONS: Schizoaffective disorder PLAN: -Patient is admitted under voluntary status to [facility]HU for stabilization of psychiatric symptoms and safety. Patient has signed adult voluntary form and medication consent and is placed in patient's chart. We will monitor for the patient compliance with medication and may consider involuntary status if needed. -Medications : Will attempt to cross titrate Clozapine with Invega to transition onto long-acting injection to help with compliance and stability. Crease Clozapine to 150 mg p.o. BID for psychosis/mood stabilization. Discontinue Latuda Decrease Klonopin 0.25 mg 4 times daily Trazodone 50 mg p.o. at bedtime - Haldol PRN for agitation/aggression -NRT - not needed as patient does not smoke -SW on board for discharge planning. Encourage patient to participate in groups to work on coping skills.
[2024-10-31 12:56] LABS: Glucose,Whole Blood 244 mg/dL (70-110)
[2024-10-31] MEDS: clonazePAM 0.5 MG TAB PO SCH (13:07)
[2024-10-31 13:17] LABS: Glucose,Whole Blood 245 mg/dL (70-110)
--- NOTE | 2024-10-31 14:02 | P.PN ---
Progress Note - Text Progress Note Date: 10/31/24 - Chief Complaint Confused - History of Present Illness 59-year-old patient, follows with Dr. Smita June. Medical conditions include diabetes, hyperlipidemia, hypertension, hypothyroid. Also known history of bipolar schizophrenia. Smokes about half a pack a day Patient was brought into the ER by the family. Patient is rather disorganized thought. Wean from 1 topic to the other not making sense. As per the psychiatry notes patient interview had to be stopped because of the same. For me patient is able to answer simple questions. Does use albuterol inhaler as needed. Since missing her cigarettes. Wants to smoke outside. Appetite is fair. Sleeps quite a bit. Denies any pain. No fever no chills. Occasional cough. No respiratory symptoms otherwise. October 31: Patient laying in bed. Did eat her breakfast. When she is talking she is talking about her 's sex life. Then she is talking about her family doctor Dr. madera. Then tells me I am the psychiatrist even though I did introduce myself internal medicine. Wants me to discharge her she she can go back to her . Afterwards I was called that patient took a slow fall in the dining room. Never passed out. Did not hit her head. She was positive for orthostatic. I will stop her Zestril. Ordered half a liter of LR over 4 hours. Continue current dose of insulin. Manual blood pressure: Lying down 109/66 heart rate 77. Sitting 85/52 heart rate 52. Standing heart rate 111. Patient not able to stand for blood pressure. Active Medications Acetaminophen (Acetaminophen Tab 325 Mg Tab) 650 mg PO Q4HR PRN PRN Reason: Mild Pain (Scale 1 to 3) Al Hydroxide/Mg Hydroxide (Mag Hydrox/Al Hydrox/Simeth 355 Ml Bottle) 30 ml PO Q4HR PRN PRN Reason: GI Upset Albuterol Sulfate (Albuterol Inhaler 60 Puff/8 Gm Inhaler (Mhu)) 2 puff INHALATION RT-Q4H PRN PRN Reason: Shortness Of Breath Atorvastatin Calcium (Atorvastatin 20 Mg Tab) 20 mg PO HS [facility] Last Admin: 10/30/24 21:16 Dose: 20 mg Clonazepam (Clonazepam 0.5 Mg Tab) 0.25 mg PO QID [facility] Last Admin: 10/31/24 13:07 Dose: 0.25 mg Clozapine (Clozapine 100 Mg Tab) 150 mg PO DAILY [facility] Stop: 11/09/24 23:00 Last Admin: 10/31/24 09:15 Dose: 150 mg Clozapine (Clozapine 100 Mg Tab) 150 mg PO [facility] Stop: 11/09/24 23:00 Haloperidol (Haloperidol 5 Mg Tab) 5 mg PO Q6HR PRN PRN Reason: Agitation or Acute Psychosis Last Admin: 10/30/24 14:48 Dose: 5 mg Haloperidol Lactate (Haloperidol Lactate 5 Mg/Ml 1 Ml Vial) 5 mg IM Q6HR PRN PRN Reason: Agitation or Acute Psychosis Ibuprofen (Ibuprofen 600 Mg Tab) 600 mg PO Q6HR PRN PRN Reason: Moderate Pain (Scale 4 to 6) Insulin Aspart (Insulin Aspart (Novolog) 100 Unit/Ml Vial) 0 unit SQ [facility]; Protocol Last Admin: 10/31/24 13:06 Dose: 4 unit Insulin Aspart (Insulin Aspart (Novolog) 100 Unit/Ml Vial) 4 unit SQ TID- W/MEALS [facility] Last Admin: 10/31/24 13:06 Dose: 4 unit Insulin Detemir (Insulin Detemir (Levemir) 100 Unit/Ml Syr) 16 unit SQ DAILY@0700 [facility] Last Admin: 10/31/24 09:59 Dose: 16 unit Levothyroxine Sodium (Levothyroxine 75 Mcg Tab) 75 mcg PO 0630 [facility] Last Admin: 10/31/24 06:53 Dose: 75 mcg Magnesium Hydroxide (Magnesium Hydroxide 2,400 Mg/30 Ml Cup) 2,400 mg PO DAILY PRN PRN Reason: Constipation Nicotine (Nicotine 14mg/24hr Patch) 1 patch TRANSDERM DAILY [facility] Last Admin: 10/31/24 09:29 Dose: Not Given Trazodone HCl (Trazodone Hcl 50 Mg Tab) 50 mg PO [facility] Last Admin: 10/30/24 21:16 Dose: 50 mg Social history: Lives with the . 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 Smokes half a pack a day. Physical examination: VITAL SIGNS: 97.8, rest of the vital signs as above in my progress note from today GENERAL: BMI 25.3, laying in bed awake comfortable. EYES: Pupils equal. Conjunctiva zeynep l. HEENT: External appearance of nose and ears normal, oral cavity grossly normal. NECK: JVD not raised; masses not palpable. HEART: First and second heart sounds are normal; no edema. LUNGS: Respiratory rate normal; clear to auscultation. ABDOMEN: Soft, nontender, liver spleen not palpable, no masses palpable. PSYCH: Patient keeps going off topic. Seen by notes above MUSCULOSKELETAL:No Clubbing/cyanosis;muscles-grossly intact INVESTIGATIONS, reviewed in the clinical context: October 30: Accu-Chek 186 October 29, 2024: White count 8.6 hemoglobin 12.5 platelets 327 sodium 135 potassium 4.6 creatinine 0.88 LDL 24 TSH 0.7 COVID-19 PCR not detected Assessment plan: -Schizophrenia with progression Medications per psychiatry -Chronic nicotine dependence, cigarette smoker Nicotine patch half a pack a day -Near syncope with orthostatic DC lisinopril. LR 500 cc to be given Diabetes mellitus type 2 chronically on insulin Patient on Lantus and Humalog scheduled. Follow Accu-Cheks sliding scale -Hyperlipidemia Lipitor 20 mg nightly -Hypothyroid Synthroid 75 mcg a day -Essential hypertension, running on the lower side Stop Zestril Stop Zestril. Give 500 cc of LR. Other medication to continue. Thank you Dr. Braswell Past Medical History Past Medical History: Diabetes Mellitus, Hyperlipidemia, Hypertension, Thyroid Disorder History of Any Multi-Drug Resistant Organisms: None Reported Past Surgical History: Appendectomy Past Anesthesia/Blood Transfusion Reactions: No Reported Reaction Smoking Status: Current every day smoker
[2024-10-31 17:35] LABS: Glucose,Whole Blood 138 mg/dL (70-110)
[2024-10-31] MEDS: ACETAMINOPHEN TAB 325 MG TAB PO PRN (18:42)
[2024-10-31] MEDS: cloZAPine 100 MG TAB PO SCH (20:49)
[2024-11-01 07:53] LABS: Glucose,Whole Blood 251 mg/dL (70-110)
--- NOTE | 2024-11-01 10:31 | P.PN ---
Progress Note - Text Progress Note Date: 11/01/24 Interval history: Patient was seen today laying in bed agreeable to speak to principal technical writer. She claims that she has been feeling a bit lightheaded recently. Continues to be intrusive with principal technical writer and continues to ask personal questions and asked questions that are irrelevant to conversation. She needs several redirections during the interview. She was fairly talkative today, somewhat illogical at times. She had fairly poor insight poor judgment. Believes that she needs more anxiety medications. Claims that she wants a higher dose of Klonopin. She continues to speak about being seen by another doctor named "Dr Suazo" and beelives that principal technical writer is his "international account executive". claims that she is taking her medications. Denied any auditory or visual hallucinations. Denied any suicidal homicidal ideations intent or plan. MENTAL STATUS EXAM: General Appearance: Patient appears to be older than stated age is alert, the patient was attempting to cooperate cooperative, required multiple redirection, Patient appears to have fair hygiene and grooming. Behavior: Patient is laying in bed, has bizarre behavior. improving mildly Speech: Patient's speech is fluent and nonpressured. Fairly talkative Mood/Affect: Patient reports their mood is "fine" affect is congruent Suicidality/Homicidality: Patient denies having any homicidal ideation intent or plan. Denies any suicidal ideations intent or plan Perceptions: Patient denies any visual hallucinations and denies any auditory hallucinations Though content/process: Thought process is circumstantial, illogical, patient has disorganized and bizarre thought content, intrusive, improving mildly Memory and concentration: AOX2-3, grossly intact for the purposes of this session. Can not spell "WORLD" backwards Judgment and insight: poor chronically, improving mildly IMPRESSIONS: Schizoaffective disorder PLAN: -Patient is admitted under voluntary status to MHU for stabilization of psychiatric symptoms and safety. Patient has signed adult voluntary form and medication consent and is placed in patient's chart. -Medications : continue to cross titrate Clozapine with prolixin to transition onto long-acting injection to help with compliance and stability. decrease Clozapine to 100 mg p.o. BID for psychosis/mood stabilization. start prolixin 1 mg bid Klonopin 0.25 mg 4 times daily Trazodone 50 mg p.o. at bedtime - Haldol PRN for agitation/aggression -NRT - not needed as patient does not smoke -SW on board for discharge planning. Encourage patient to participate in groups to work on coping skills.
[2024-11-01 12:49] LABS: Glucose,Whole Blood 136 mg/dL (70-110)
[2024-11-01 17:39] LABS: Glucose,Whole Blood 164 mg/dL (70-110)
[2024-11-01 19:58] LABS: Glucose,Whole Blood 147 mg/dL (70-110)
[2024-11-01] MEDS: cloZAPine 100 MG TAB PO SCH (20:45)
[2024-11-02 08:08] LABS: Glucose,Whole Blood 218 mg/dL (70-110)
--- NOTE | 2024-11-02 11:22 | P.PN ---
Progress Note - Text Progress Note Date: 11/02/24 Interval history: Patient was seen today laying in bed agreeable to speak to feature writer. She contin ues to be intrusive with feature writer at times, demanding and needy. She attempted to answer most questions, continues to be illogical at times with her answers to some questions. She continues to believe that feature writer is a "internal medicine physician" to her psychiatrist. She claims that she is feeling annoyed with other patients on the unit and was requesting to go home. We spoke about her AMA form which she signed and patient sounded hesitant however undecided as to whether she would rescind the AMA. Claims that she is sleeping fairly at nighttime. We spoke about medication changes which she is agreeable to try Haldol as she is requesting it. She had fairly poor insight poor judgment however this appears to be chronic. Believes that she needs more anxiety medications. claims that she is taking her medications. Denied any auditory or visual hallucinations. Denied any suicidal homicidal ideations intent or plan. MENTAL STATUS EXAM: General Appearance: Patient appears to be older than stated age is alert, the patient was attempting to cooperate cooperative, required multiple redirection, Patient appears to have fair hygiene and grooming. Behavior: Patient is laying in bed, bizarre at times, improving mildly. Attempts to cooperate, demanding Speech: Patient's speech is fluent and nonpressured. Fairly talkative Mood/Affect: Patient reports their mood is "ok" affect is congruent Suicidality/Homicidality: Patient denies having any homicidal ideation intent or plan. Denies any suicidal ideations intent or plan Perceptions: Patient denies any visual hallucinations and denies any auditory cameron llucinations Though content/process: Thought process is circumstantial, illogical, patient has bizarre thought content times, intrusive, improving mildly Memory and concentration: AOX2-3, grossly intact for the purposes of this session Judgment and insight: poor chronically, improving mildly IMPRESSIONS: Schizoaffective disorder PLAN: -Patient is admitted under voluntary status to MHU for stabilization of psychiatric symptoms and safety. Patient has signed adult voluntary form and medication consent and is placed in patient's chart. -Medications : continue to cross titrate Clozapine with now Haldol (as requested by patient) to transition onto long-acting injection to help with compliance and stability. decrease Clozapine to 75 mg p.o. BID for psychosis/mood stabilization. start haldol liquid 2 mg bid decrease Klonopin 0.25 mg 3 times daily Trazodone 50 mg p.o. at bedtime - Haldol PRN for agitation/aggression -NRT - not needed as patient does not smoke -SW on board for discharge planning. Encourage patient to participate in groups to work on coping skills.
[2024-11-02 12:23] LABS: Glucose,Whole Blood 137 mg/dL (70-110)
[2024-11-02] MEDS: clonazePAM 0.5 MG TAB PO SCH (15:01)
[2024-11-02 17:42] LABS: Glucose,Whole Blood 124 mg/dL (70-110)
[2024-11-02 19:48] LABS: Glucose,Whole Blood 178 mg/dL (70-110)
[2024-11-02] MEDS: busPIRone HCl 5 MG TAB PO SCH (20:42)
[2024-11-02] MEDS: cloZAPine 25 MG TAB PO SCH (20:42)
[2024-11-02] MEDS: IBUPROFEN 600 MG TAB PO PRN (21:00)
[2024-11-03 07:45] LABS: Glucose,Whole Blood 230 mg/dL (70-110)
--- NOTE | 2024-11-03 11:39 | P.PN ---
Progress Note - Text Progress Note Date: 11/03/24 Interval history: Patient was seen today wandering the hallways wanting to speak to filing writer. She appeared to have showered earlier today. She claims that she is still feeling fairly anxious. She had a note in her hand that had several numbers on it and states that it is her family's number. She thought today that her psychiatrist Dr. Mercer . Floral Merchandiser informed her that this is not true and that he spoke with him earlier today. Floral Merchandiser did speak with her psychiatrist Dr. Mercer who explained that patient has been tried on several different medications in the past, has chronic schizophrenia and has ultimately done well/better with ECT. He claims that patient would be more appropriate to have ECT done inpatient if possible. She continues to be intrusive with filing writer at times, less demanding today. Continues to focus on her anxiety. Claims that she is hearing "God's voice" today however did not state what he is saying. She had fairly poor insight poor judgment however this appears to be chronic. claims that she is taking her medications. Denied any visual hallucinations. Denied any suicidal homicidal ideations intent or plan. Apparently patient only slept about 4 hours last night. MENTAL STATUS EXAM: General Appearance: Patient appears to be older than stated age is alert, the patient was attempting to cooperate cooperative, required multiple redirection, Patient appears to have fair hygiene and grooming. Behavior: Patient is laying in bed, bizarre at times, improving mildly. Attempts to cooperate, demanding less today Speech: Patient's speech is fluent and nonpressured. Fairly talkative and demanding Mood/Affect: Patient reports their mood is "anxious real bad" affect is congruent and appears anxious Suicidality/Homicidality: Patient denies having any homicidal ideation intent or plan. Denies any suicidal ideations intent or plan Perceptions: Patient denies any visual hallucinations and denies any auditory hallucinations Though content/process: Thought process is circumstantial, illogical, patient has bizarre thought content times, intrusive, improving mildly Memory and concentration: AOX2-3, grossly intact for the purposes of this session Judgment and insight: poor chronically IMPRESSIONS: Schizoaffective disorder PLAN: -Patient is admitted under voluntary status to MHU for stabilization of psychiatric symptoms and safety. Patient has signed adult voluntary form and medication consent and is placed in patient's chart. -Medications : continue to cross titrate Clozapine with Haldol PO (as requested by patient) to transition onto long-acting injection to help with compliance and stability. decrease Clozapine to 50 mg p.o. BID for psychosis/mood stabilization starting tomorrow. increase haldol liquid 2 mg tid with plan to transition onto MESSER. continue Klonopin 0.25 mg 3 times daily consider adding an adjunct antipsychotic such as seroquel or zyprexa if needed at night time if Haldol is not effective enough. increase Trazodone 100 mg p.o. at bedtime - Haldol PRN for agitation/aggression -NRT - not needed as patient does not smoke -SW on board for discharge planning. Encourage patient to participate in groups to work on coping skills. Due to patient's outpatient psychiatrist adamantly requesting ECT inpatient, will attempt to reach out to inpatient ECT units today and tomorrow to see if they will be able to accept patient. Hopeful for discharge next week if patient continues to improve
[2024-11-03] MEDS: busPIRone HCl 5 MG TAB PO SCH (11:45)
[2024-11-03 12:39] LABS: Glucose,Whole Blood 113 mg/dL (70-110)
[2024-11-03 13:38] LABS: Glucose,Whole Blood 231 mg/dL (70-110)
[2024-11-03 17:28] LABS: Glucose,Whole Blood 134 mg/dL (70-110)
[2024-11-03 21:03] LABS: Glucose,Whole Blood 222 mg/dL (70-110)
[2024-11-03] MEDS: cloZAPine 25 MG TAB PO ONE (21:08)
[2024-11-03] MEDS: traZODone HCL 100 MG TAB PO SCH (21:09)
[2024-11-04 07:53] LABS: Glucose,Whole Blood 179 mg/dL (70-110)
[2024-11-04] MEDS: cloZAPine 25 MG TAB PO SCH (08:03)
[2024-11-04 12:37] LABS: Glucose,Whole Blood 199 mg/dL (70-110)
--- NOTE | 2024-11-04 15:37 | P.PN ---
Progress Note - Text Progress Note Date: 11/04/24 Interval history: Patient was seen today via telehealth in cross-coverage for Dr. Braswell. She pres ents with anxious and depressed affect, and is overtly psychotic. She reports her mood is "real anxious" and is focused on how "terrible" she looks. She reports she has not showered in about 5 days because "it is scary in here", believes when she tries to take a shower she gets "raped in there" but clarifies this has not happened in this hospital and she is referring to other hospitals, but she cannot elaborate. She does not recall Dr. Braswell (her assigned psychiatrist). She is fixated on feeling confused and scared, and looks about the room anxiously. She admits to auditory hallucinations, denies command AH. She is not able to answer regarding what she is hearing. She becomes somewhat more anxious and irritable and has difficulty tolerating the assessment, asks to leave the room multiple times. She refers to this engineering technical writer as "Dorene" multiple times, states "Listen to me Dorene, I gotta get out of here". When asked who Dorene is she claims "Dorene" is her daughter. She continues to make nonsensical statements... "I need to talk to Dad"... and continues to refer to me as Dorene. She reports poor sleep. We discussed her treatment plan which includes plans to transfer her to another facility to perform ECT (once an accepting facility is found) since she is not responding well to oral medications. She is able to confirm that she has undergone ECT in the past and that she tolerated the ECT well, understands that ECT helped her in the past. She is agreeable to the plan to transfer her to another hospital that can do ECT once a facility is found. Once the assessment ended, she intentionally sat herself on the floor in the room (appears to have done this due to anxiety/psychotic thinking, and did not fall per staff witness) and staff was called to assist patient out of the room. Spoke with Aubree unitizer and Dr. Mercer (patient's outpatient psychiatrist) who discussed transfer to outside hospital such as [facility] or [facility] for inpatient hospitalization for ECT and was informed Dr. Braswell is out today. He was given the name of the patient's web content & social media manager and UR to help begin the paperwork needed to possibly transfer the patient to another hospital for ECT treatment. Patient previously had ECT at [facility] however they no longer perform ECT there. MENTAL STATUS EXAM: General Appearance: Patient appears to be older than stated age, hair appears oily and not showered. Behavior: Patient is sitting in chair, anxiously looking about the room and looking at herself in the camera, focusing on how "terrible" she looks, later sits herself on the floor of the room and staff were called to direct her out of the room. Attempts to cooperate but is overtly psychotic. Speech: Patient's speech is fluent and non-pressured. Mood/Affect: Patient reports their mood is "anxious" and "scared", affect is congruent and appears anxious/fearful. Suicidality/Homicidality: Patient denies having any homicidal ideation intent or plan. Denies any suicidal ideation intent or plan. Perceptions: Patient denies any visual hallucinations. Patient endorses auditory hallucinations. Denies command auditory hallucinations. Though content/process: Thought process is illogical, thought blocking, calling this engineering technical writer "Dorene", focused on leaving the room, paranoid/persecutory delusions. Memory and concentration: AOX2-3, grossly intact for the purposes of this session Judgment and insight: poor chronically IMPRESSIONS: Schizoaffective disorder PLAN: -Patient is admitted under voluntary status to MHU for stabilization of psychiatric symptoms and safety. Patient has signed adult voluntary form and medication consent and is placed in patient's chart. -Patient appears to have a poor response to oral meds. Treatment team has spoken with her outpatient psychiatrist Dr. Mercer again today and discussed ECT which patient has tolerated in the past. Dr. Mercer was given the contact information for patient's web content & social media manager and UR to begin the process of looking for an a ccepting facility to transfer patient for inpatient ECT. -Medications: Regarding meds, continue with current plan to cross-taper off of Clozapine and onto Haldol, with plan to transition to MESSER, however at this point, patient appears to be non-responsive to oral meds. Continue Clozapine at 50 mg p.o. BID for psychosis/mood stabilization and Haldol liquid 2 mg tid with plan to transition onto MESSER. Continue Klonopin 0.25 mg 3 times daily Continue Trazodone 100 mg p.o. at bedtime -Haldol PRN for agitation/aggression -NRT - not needed as patient does not smoke
[2024-11-04 17:12] LABS: Glucose,Whole Blood 200 mg/dL (70-110)
[2024-11-04 20:26] LABS: Glucose,Whole Blood 223 mg/dL (70-110)
[2024-11-05 07:50] LABS: Glucose,Whole Blood 228 mg/dL (70-110)
--- NOTE | 2024-11-05 10:11 | P.PN ---
Subjective Progress Note Date: 11/05/24 Principal diagnosis: schizoaffective Patient was seen today . She was walking in the [place] and was hesitant to come and talk to me. She says it was time for group to start. I was going to affirm her for when he go to group and she said, "oh I don't go to that" when asked to explain then why she was worried about seeing me and then talked about it being group time she had no explanation. She then said she wanted to see a see . I had explained to her that I was a psychiatrist on duty today and so I thought she [place] see internal medicine doctor. She said, " no I want to see a psychiatrist." I reminded her that I was a psychiatrist and a minute later she said, " I haven't seen a doctor yet.". . She presents with anxious and depressed affect, and is overtly psychotic. She reports poor sleep. MENTAL STATUS EXAM: the patient is Amber changing subject has no eye contact poor self-care. In the middle of our interview she says I have to go I told her okay he may and when she got up she says I have to fall and then she gently lowered herself to the floor and slid out lengthwise. 2 seconds later she was getting back up. When asked her why she did that she says, "I'm just crazy" General Appearance: Patient appears to be older than stated age, hair appears oi ly and not showered. Behavior: Patient is sitting in chair, anxiously looking about the room . She notices also to irrelevant things for example making comments about how my feet are too big and why my drinking Mountain Dew? Speech: Patient's speech is fluentrambling Mood/Affect: Patient reports their mood is "anxious" and "scared", affect is congruent and appears anxious/fearful. Suicidality/Homicidality: Patient denies having any homicidal ideation intent or plan. Denies any suicidal ideation intent or plan. Perceptions: Patient denies any visual hallucinations. Patient endorses auditory hallucinations. Denies command auditory hallucinations. Though content/process: Thought process is illogical, thought blocking, calling this policy writer sales "Dorene", focused on leaving the room, paranoid/persecutory delusions. Memory and concentration: AOX2-3, grossly intact for the purposes of this sessi on Judgment and insight: poor chronically IMPRESSIONS: Schizoaffective disorder PLAN: -Patient is admitted under voluntary status to MHU for stabilization of psychiatric symptoms and safety. Patient has signed adult voluntary form and medication consent and is placed in patient's chart. -Patient appears to have a poor response to oral meds. Treatment team has spoken with her outpatient psychiatrist Dr. Mercer again today and discussed ECT which patient has tolerated in the past. Dr. Mercer was given the contact information for patient's social media analyst and UR to begin the process of looking for an accepting facility to transfer patient for inpatient ECT. -Medications: Regarding meds, continue with current plan to cross-taper off of Clozapine and onto Haldol, with plan to transition to MESSER, however at this point, patient appears to be non-responsive to oral meds. Continue Clozapine at 50 mg p.o. BID for psychosis/mood stabilization and Haldol liquid 2 mg tid with plan to transition onto MESSER. Continue Klonopin 0.25 mg 3 times daily Continue Trazodone 100 mg p.o. at bedtime -Haldol PRN for agitation/aggression -NRT - not needed as patient does not smoke Objective - Vital Signs Vital signs: Vital Signs Temp 98 F 11/04/24 06:59 Pulse 128 H 11/05/24 07:58 Resp 18 11/01/24 06:07 BP 84/52 11/05/24 07:58 Pulse Ox 96 11/04/24 06:59 FiO2 Intake & Output 11/04/24 11/05/24 11/05/24 18:59 06:59 18:59 Intake Total 236 Balance 236 Intake: Oral 236 - Labs CBC & Chem 7: 10/29/24 12:13 10/29/24 12:13 Labs: Abnormal Lab Results - Last 24 Hours (Table) 11/04/24 11/04/24 11/04/24 Range/Units 12:35 17:10 20:24 POC Glucose (mg/dL) 199 H 200 H 223 H (70-110) mg/dL 11/05/24 Range/Units 07:49 POC Glucose (mg/dL) 228 H (70-110) mg/dL
[2024-11-05 12:31] LABS: Glucose,Whole Blood 158 mg/dL (70-110)
--- NOTE | 2024-11-05 13:41 | P.PN ---
Progress Note - Text Progress Note Date: 11/05/24 - Chief Complaint Confused - History of Present Illness 59-year-old patient, follows with Dr. Smita June. Medical conditions include diabetes, hyperlipidemia, hypertension, hypothyroid. Also known history of bipolar schizophrenia. Smokes about half a pack a day Patient was brought into the ER by the family. Patient is rather disorganized thought. Wean from 1 topic to the other not making sense. As per the psychiatry notes patient interview had to be stopped because of the same. For me patient is able to answer simple questions. Does use albuterol inhaler as needed. Since missing her cigarettes. Wants to smoke outside. Appetite is fair. Sleeps quite a bit. Denies any pain. No fever no chills. Occasional cough. No respiratory symptoms otherwise. October 31: Patient laying in bed. Did eat her breakfast. When she is talking she is talking about her 's sex life. Then she is talking about her family doctor Dr. madera. Then tells me I am the psychiatrist even though I did introduce myself internal medicine. Wants me to discharge her she she can go back to her . Afterwards I was called that patient took a slow fall in the dining room. Never passed out. Did not hit her head. She was positive for orthostatic. I will stop her Zestril. Ordered half a liter of LR over 4 hours. Continue current dose of insulin. Manual blood pressure: Lying down 109/66 heart rate 77. Sitting 85/52 heart rate 52. Standing heart rate 111. Patient not able to stand for blood pressure. November 05: Was anxious. Still psychosis symptoms. Talks about a particular doctor. Goes from 1 topic to the other. Oral intake fluctuates. Advised about oral intake. Accu-Cheks are reasonable given her variable intake.Antihypertensives were discontinued. Active Medications Acetaminophen (Acetaminophen Tab 325 Mg Tab) 650 mg PO Q4HR PRN PRN Reason: Mild Pain (Scale 1 to 3) Last Admin: 10/31/24 18:42 Dose: 650 mg Al Hydroxide/Mg Hydroxide (Mag Hydrox/Al Hydrox/Simeth 355 Ml Bottle) 30 ml PO Q4HR PRN PRN Reason: GI Upset Albuterol Sulfate (Albuterol Inhaler 60 Puff/8 Gm Inhaler (Mhu)) 2 puff INHALATION RT-Q4H PRN PRN Reason: Shortness Of Breath Atorvastatin Calcium (Atorvastatin 20 Mg Tab) 20 mg PO [facility] Last Admin: 11/04/24 20:54 Dose: 20 mg Buspirone HCl (Buspirone Hcl 5 Mg Tab) 7.5 mg PO TID [facility] Last Admin: 11/05/24 09:05 Dose: 7.5 mg Clonazepam (Clonazepam 0.5 Mg Tab) 0.25 mg PO TID [facility] Last Admin: 11/05/24 09:07 Dose: 0.25 mg Clozapine (Clozapine 25 Mg Tab) 50 mg PO BID [facility] Stop: 11/09/24 23:00 Last Admin: 11/05/24 09:05 Dose: 50 mg Haloperidol (Haloperidol 5 Mg Tab) 5 mg PO Q6HR PRN PRN Reason: Agitation or Acute Psychosis Last Admin: 11/05/24 12:18 Dose: 5 mg Haloperidol (Haloperidol 2 Mg Tab) 2 mg PO TID [facility] Last Admin: 11/05/24 09:05 Dose: 2 mg Haloperidol Lactate (Haloperidol Lactate 5 Mg/Ml 1 Ml Vial) 5 mg IM Q6HR PRN PRN Reason: Agitation or Acute Psychosis Ibuprofen (Ibuprofen 600 Mg Tab) 600 mg PO Q6HR PRN PRN Reason: Moderate Pain (Scale 4 to 6) Last Admin: 11/02/24 21:00 Dose: 600 mg Insulin Aspart (Insulin Aspart (Novolog) 100 Unit/Ml Vial) 0 unit SQ [facility]; Protocol Last Admin: 11/05/24 13:14 Dose: 2 unit Insulin Aspart (Insulin Aspart (Novolog) 100 Unit/Ml Vial) 4 unit SQ TID- W/MEALS [facility] Last Admin: 11/05/24 13:14 Dose: 4 unit Insulin Detemir (Insulin Detemir (Levemir) 100 Unit/Ml Syr) 16 unit SQ DAILY@0700 [facility] Last Admin: 11/05/24 07:59 Dose: 16 unit Levothyroxine Sodium (Levothyroxine 75 Mcg Tab) 75 mcg PO 0630 [facility] Last Admin: 11/05/24 05:36 Dose: 75 mcg Magnesium Hydroxide (Magnesium Hydroxide 2,400 Mg/30 Ml Cup) 2,400 mg PO DAILY PRN PRN Reason: Constipation Trazodone HCl (Trazodone Hcl 100 Mg Tab) 100 mg PO [facility] Last Admin: 11/04/24 19:41 Dose: 100 mg Social history: Lives with the . 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 Smokes half a pack a day. Physical examination: VITAL SIGNS: 98, 106, 18, 99 x 60, 96% GENERAL: BMI 25.3, setting of a bit anxious. EYES: Pupils equal. Conjunctiva zeynep l. HEENT: External appearance of nose and ears normal, oral cavity grossly normal. NECK: JVD not raised; masses not palpable. HEART: First and second heart sounds are normal; no edema. LUNGS: Respiratory rate normal; clear to auscultation. ABDOMEN: Soft, nontender, liver spleen not palpable, no masses palpable. PSYCH: P awake anxious. Occasionally tearful. Goes from 1 topic to the other. MUSCULOSKELETAL:No Clubbing/cyanosis;muscles-grossly intact INVESTIGATIONS, reviewed in the clinical context: October 30: Accu-Chek 186 October 29, 2024: White count 8.6 hemoglobin 12.5 platelets 327 sodium 135 potassium 4.6 creatinine 0.88 LDL 24 TSH 0.7 COVID-19 PCR not detected Assessment plan: -Schizophrenia with progression Medications per psychiatry -Chronic nicotine dependence, cigarette smoker Nicotine patch half a pack a day -Near syncope with orthostatic DC lisinopril. LR 500 cc was given Diabetes mellitus type 2 chronically on insulin Patient on Lantus and Humalog scheduled. Follow Accu-Cheks sliding scale -Hyperlipidemia Lipitor 20 mg nightly -Hypothyroid Synthroid 75 mcg a day -Essential hypertension, running on the lower side Stop Zestril Continue current treatment plan. Encouraged to increase oral intake with consistency. Thank you Dr. Braswell Past Medical History Past Medical History: Diabetes Mellitus, Hyperlipidemia, Hypertension, Thyroid Disorder History of Any Multi-Drug Resistant Organisms: None Reported Past Surgical History: Appendectomy Past Anesthesia/Blood Transfusion Reactions: No Reported Reaction Smoking Status: Current every day smoker
[2024-11-05 17:54] LABS: Glucose,Whole Blood 175 mg/dL (70-110)
[2024-11-05 20:05] LABS: Glucose,Whole Blood 151 mg/dL (70-110)
--- NOTE | 2024-11-06 07:39 | P.PN ---
Subjective Progress Note Date: 11/06/24 Principal diagnosis: schizoaffective Patient was seen today . She wanted to talk to a dr Hansno whom she asserted was here.. She presents with anxious affect, and is overtly psychotic. She reports poor sleep. MENTAL STATUS EXAM: the patient is Amber changing subject has no eye contact poor self-care. In the middle of our interview she says I have to go I told her okay he may and when she got up she says I have to fall and then she gently lowered herself to the floor and slid out lengthwise. 2 seconds later she was getting back up. When asked her why she did that she says, "I'm just crazy" General Appearance: Patient appears to be older than stated age, hair appears oily and not showered. Behavior: Patient is sitting in chair, anxiously looking about the room . She notices also to irrelevant things for example making comments about how my feet are too big and why my drinking Mountain Dew? Speech: Patient's speech is fluentrambling Mood/Affect: Patient reports their mood is "anxious" and "scared", affect is congruent and appears anxious/fearful. Suicidality/Homicidality: Patient denies having any homicidal ideation intent or plan. Denies any suicidal ideation intent or plan. It is unclear if she understands the questions. Perceptions: Patient denies any visual hallucinations. Patient endorses auditory hallucinations despite good doses of antipsychotics. Denies command auditory hallucinations. Though content/process: Thought process is illogical, thought blocking, , focused on getting some tylenol because she slept well but has a sore neck, paranoid/persecutory delusions, "They are going to hurt me." Memory and concentration: AOX2-3, grossly intact for the purposes of this session Judgment and insight: poor chronically IMPRESSIONS: Schizoaffective disorder PLAN: Waiting for ECT. We had to put her on one to one due to having no boundaries and invading other patients privacy and saying troublesome paraniod things to them and about them. -Patient is admitted under voluntary status to MHU for stabilization of psychiatric symptoms and safety. Patient has signed adult voluntary form and medication consent and is placed in patient's chart. -Patient appears to have a poor response to oral meds. Treatment team has spoken with her outpatient psychiatrist Dr. Mercer again today and discussed ECT which patient has tolerated in the past. Dr. Mercer was given the contact information for patient's social welfare administrator and [facility] to begin the process of looking for an accepting facility to transfer patient for inpatient ECT. -Medications: Regarding meds, continue with current plan to cross-taper off of Clozapine and onto Haldol, with plan to transition to MESSER, however at this point, patient appears to be non-responsive to oral meds. Continue Clozapine at 50 mg p.o. BID for psychosis/mood stabilization and Haldol liquid 2 mg tid with plan to transition onto MESSER. Continue Klonopin 0.25 mg 3 times daily Continue Trazodone 100 mg p.o. at bedtime -Haldol PRN for agitation/aggression -NRT - not needed as patient does not smoke Objective - Vital Signs Vital signs: Vital Signs Temp 98 F 11/04/24 06:59 Pulse 90 11/05/24 15:50 Resp 18 11/01/24 06:07 BP 130/63 11/05/24 15:50 Pulse Ox 96 11/04/24 06:59 FiO2 - Labs CBC & Chem 7: 10/29/24 12:13 10/29/24 12:13 Labs: Abnormal Lab Results - Last 24 Hours (Table) 11/05/24 11/05/24 11/05/24 Range/Units 07:49 12:29 17:52 POC Glucose (mg/dL) 228 H 158 H 175 H (70-110) mg/dL 11/05/24 Range/Units 20:03 POC Glucose (mg/dL) 151 H (70-110) mg/dL
[2024-11-06 07:48] LABS: Glucose,Whole Blood 225 mg/dL (70-110)
[2024-11-06 12:40] LABS: Glucose,Whole Blood 191 mg/dL (70-110)
[2024-11-06 17:37] LABS: Glucose,Whole Blood 165 mg/dL (70-110)
[2024-11-06 20:21] LABS: Glucose,Whole Blood 220 mg/dL (70-110)
[2024-11-07 07:58] LABS: Glucose,Whole Blood 191 mg/dL (70-110)
[2024-11-07 12:46] LABS: Glucose,Whole Blood 143 mg/dL (70-110)
--- NOTE | 2024-11-07 13:42 | P.PN ---
Progress Note - Text Progress Note Date: 11/07/24 Interval history: Patient was seen today in cross-coverage for Dr. Braswell. Chart reviewed: Over the weekend she was placed on 1:1 due to entering other patients' rooms and requiring frequent redirection. Each day from 11/03/24-11/06/24 she has received PRN Haldol 5 mg twice daily. Today she was seen eating her lunch with her 1:1 nearby and came to the office once she was finished eating. She appears more calm and cooperative than our previous assessment on Thursday. She last showered yesterday, hair is neatly combed. She appears less confused today and memory recall appears improved. She recalls without cues that I am the psychiatrist and not her daughter. She states her daughter (Dorene) is going on a trip somewhere for work. It is unclear if this is true and if patient has had recent contact with a daughter. She recalls she was placed on a 1:1 over the weekend because she was going into other patients rooms. She states she did this because she wants to know what other patients are doing. She expresses understanding when told that is not allowed on the unit to protect patient's privacy and safety. She states She denies auditory or visual hallucinations today. She does admit to paranoid ideations of over other male patients on the unit but she states she would feel safe coming off of the 1:1 monitoring and feels safe communicating to staff if she were to feel unsafe. She slept 5+ hours last night. She makes more delusional statements such as claiming staff woke her up at 2am because "they needed" her "to watch a tim". Staff reports patient continues to require redirection and staff needed to intervene at around lunchtime today between patient and another male patient over a conflict between the two patients. MENTAL STATUS EXAM: General Appearance: Patient appears to be older than stated age, hair appears clean and neatly combed, dressed in hospital gown with sweatshirt. Behavior: Patient is sitting in chair, looks about the room initially but then sits calmly and appears more relaxed and less scared today. Speech: Patient's speech is fluent and non-pressured. Mood/Affect: Patient reports their mood is better today, affect is congruent and constricted. Suicidality/Homicidality: Patient denies having any homicidal ideation intent or plan. Denies any suicidal ideation intent or plan. Perceptions: Patient denies any visual hallucinations. Patient denies auditory hallucinations. Denies command auditory hallucinations. Though content/process: Thought process is more organized and logical today but still has loose associations; has paranoid/persecutory delusions. Memory and concentration: AOX3, grossly intact for the purposes of this session Judgment and insight: poor chronically IMPRESSIONS: Schizoaffective disorder PLAN: -Patient is admitted under voluntary status to MHU for stabilization of psychiatric symptoms and safety. Patient has signed adult voluntary form and medication consent and is placed in patient's chart. -Currently the preference of her outpatient psychiatrist is for patient to be transferred to an outside hospital for ECT treatment once an accepting facility is found. -Continue 1:1 monitoring to maintain safety. -Medications: Regarding meds, continue with current plan to cross-taper off of Clozapine and onto Haldol, with plan to transition to MESSER. Continue Clozapine 50 mg p.o. BID for psychosis/mood stabilization for now. Increase Haldol from 2 mg tid to 5 mg tid for psychosis/mood, with plan to trans ition onto MESSER if there is an adequate response on this medication. Continue Klonopin 0.25 mg TID for anxiety. Continue Trazodone 100 mg p.o. at bedtime for sleep. -Haldol PRN for agitation/aggression -NRT - not needed as patient does not smoke. -Social work on board for discharge planning/transfer to another facility for inpatient ECT treatment. Encourage participation in milieu.
[2024-11-07] MEDS: haloperidoL 5 MG TAB PO SCH (14:47)
[2024-11-07 17:53] LABS: Glucose,Whole Blood 182 mg/dL (70-110)
[2024-11-07 20:21] LABS: Glucose,Whole Blood 174 mg/dL (70-110)
[2024-11-08 07:45] LABS: Glucose,Whole Blood 210 mg/dL (70-110)
--- NOTE | 2024-11-08 12:33 | P.PN ---
Progress Note - Text Progress Note Date: 11/08/24 Interval history: Patient was seen today for psychiatric follow-up. Patient was seen with a one -to-one sitter today. She attempted earlier in the day to frank after technical writer and editor and going to his room while attempting to speak to another patient. She continues to be fairly impulsive, continues to have very poor insight poor judgment into her condition and need for treatment. She was difficult to redirect during conversation. Continues to focus on her anxiety levels. She has poor reality testing. Has been apparently taking her medications not reporting any side affects at this time. Denying any depression. Claims that she has been speaking her wants her "discharged". Continues to be bizarre delusional, loosely formed. She is apparently sleeping at night, continues to be impulsive and intrusive on the unit apparently going after another particular patient and targeting them. Denying any auditory or visual hallucinations. Denying any suicidal homicidal ideations intent or plan. MENTAL STATUS EXAM: General Appearance: Patient appears to be older than stated age, hair appears clean and neatly combed, dressed in hospital gown with sweatshirt. Behavior: Patient is sitting i on her bed, difficult to redirect during conversation. Impulsive Speech: Patient's speech is fluent and non-pressured. Intrusive Mood/Affect: Patient reports their mood is "anxious", affect is congruent and constricted. Suicidality/Homicidality: Patient denies having any homicidal ideation intent or plan. Denies any suicidal ideation intent or plan. Perceptions: Patient denies any visual hallucinations. Patient denies auditory hallucinations. Though content/process: Thought process is loose associations; has paranoid/persecutory delusions. Bizarre Memory and concentration: AOX3, grossly intact for the purposes of this session Judgment and insight: poor chronically IMPRESSIONS: Schizoaffective disorder PLAN: -Patient is admitted under voluntary status to MHU for stabilization of psychiatric symptoms and safety. Patient has signed adult voluntary form and medication consent and is placed in patient's chart. -Currently the preference of her outpatient psychiatrist is for patient to be transferred to an outside hospital for ECT treatment once an accepting facility is found. -Continue 1:1 monitoring to maintain safety. -Medications: continue with current plan to cross-taper off of Clozapine and onto Haldol, with plan to transition to MESSER. d/c Clozapine after tomorrow morning dose Increase Haldol 10 mg bid for psychosis/mood, with plan to transition onto MESSER if there is an adequate response on this medication. Continue Klonopin 0.25 mg TID for anxiety. increase buspar to 10 mg tid for anxiety Continue Trazodone 100 mg p.o. at bedtime for sleep. cogentin 0.5 mg bid for eps reaction -Haldol PRN for agitation/aggression -NRT - not needed as patient does not smoke. -Social work on board for discharge planning/transfer to another facility for inpatient ECT treatment if another facility/[facility] Accepts patient. Encourage participation in milieu. Continuing to work on psychiatric stabilization with medications and treatment on the unit.
[2024-11-08 12:49] LABS: Glucose,Whole Blood 137 mg/dL (70-110)
[2024-11-08 12:52] VITALS: BMI 25.9
[2024-11-08] MEDS: busPIRone HCl 10 MG TAB PO SCH (15:54)
[2024-11-08 17:29] LABS: Glucose,Whole Blood 177 mg/dL (70-110)
[2024-11-08 20:00] LABS: Glucose,Whole Blood 220 mg/dL (70-110)
[2024-11-08] MEDS: haloperidoL 5 MG TAB PO SCH (20:08)
[2024-11-08] MEDS: BENZTROPINE MESYLATE 0.5 MG TAB PO SCH (20:09)
[2024-11-08] MEDS: cloZAPine 25 MG TAB PO SCH (20:09)
[2024-11-09 08:06] LABS: Glucose,Whole Blood 182 mg/dL (70-110)
--- NOTE | 2024-11-09 09:19 | P.PN ---
Progress Note - Text Progress Note Date: 11/09/24 Interval history: Patient was seen today for psychiatric follow-up. Patient was seen with a one -to-one sitter today. She was up earlier at the medication window, requesting to speak with functional tester typewriters. She appears to be a bit more directable today, less impulsive and more organized in her thoughts. She asked functional tester typewriters "why you wearing a sweater?". When asked why she asked this question she did not have a response. She appears to be less bizarre today, not reporting any side effects or problems with her medications. Not reporting any muscle stiffness. Continues to have fairly poor insight and judgment. Reality testing improving mildly. Not endorsing any delusions today or grandiosity. Denying any auditory or visual hallucinations. Denying any suicidal homicidal ideations intent or plan. Not reporting any side effects on the medications has been taking them. continues to endorse anxiety, no depression. MENTAL STATUS EXAM: General Appearance: Patient appears to be older than stated age, hair appears clean and neatly combed, dressed in hospital gown with sweatshirt. Behavior: Patient is sitting i on her bed, difficult to redirect during conversation. less Impulsive Speech: Patient's speech is fluent and non-pressured. less Intrusive Mood/Affect: Patient reports their mood is "anxious", affect is congruent and constricted. Suicidality/Homicidality: Patient denies having any homicidal ideation intent or plan. Denies any suicidal ideation intent or plan. Perceptions: Patient denies any visual hallucinations. Patient denies auditory hallucinations. Though content/process: Thought process is loose associations; no paranoia/delusions. less Bizarre Memory and concentration: AOX3, grossly intact for the purposes of this session Judgment and insight: poor chronically, improving mildly IMPRESSIONS: Schizoaffective disorder PLAN: -Patient is admitted under voluntary status to MHU for stabilization of psychiatric symptoms and safety. Patient has signed adult voluntary form and medication consent and is placed in patient's chart. -Currently the preference of her outpatient psychiatrist is for patient to be transferred to an outside hospital for ECT treatment once an accepting facility is found. -evaluate need for 1:1 monitoring with team and nurses -Medications: continue with current plan to cross-taper off of Clozapine and onto Haldol, with plan to transition to MESSER. d/c Clozapine today Haldol 10 mg bid for psychosis/mood, with plan to transition onto MESSER if there is an adequate response on this medication. start seroquel 50 mg qhs for sleep/mood stabilization/psychosis Continue Klonopin 0.25 mg TID for anxiety. buspar 10 mg tid for anxiety decrease Trazodone 50 mg p.o. at bedtime prn for sleep. cogentin 0.5 mg bid for eps reaction -Haldol PRN for agitation/aggression -NRT - not needed as patient does not smoke. -Social work on board for discharge planning/transfer to another facility for inpatient ECT treatment if another facility/ Accepts patient. Encourage participation in milieu. Continuing to work on psychiatric stabilization with medications and treatment on the unit.
[2024-11-09 10:37] LABS: Basophils # (A) 0.1 k/uL (0-0.2); Basophils % (A) 1 %; Eosinophils # (A) 0.1 k/uL (0-0.7); Eosinophils % (A) 1 %; HCT 34.8 % (34.0-46.0); HGB 11.6 gm/dL (11.4-16.0); Lymphocytes # (A) 1.6 k/uL (1.0-4.8); Lymphocytes % (A) 19 %; MCH 31.3 pg (25.0-35.0); MCHC 33.4 g/dL (31.0-37.0); MCV 93.9 fL (80.0-100.0); Mean Platelet Volume 6.9; Monocytes # (A) 0.4 k/uL (0-1.0); Monocytes % (A) 5 %; Neutrophils # (A) 6.1 k/uL (1.3-7.7); Neutrophils % (A) 73 %; Platelet Count 196 k/uL (150-450); RBC 3.71 m/uL (3.80-5.40); RDW 12.9 % (11.5-15.5); WBC 8.4 k/uL (3.8-10.6)
[2024-11-09 12:32] LABS: Glucose,Whole Blood 225 mg/dL (70-110)
[2024-11-09] MEDS: OLANZapine 10 MG TAB PO PRN (14:30)
[2024-11-09 17:44] LABS: Glucose,Whole Blood 138 mg/dL (70-110)
[2024-11-09 19:31] LABS: Glucose,Whole Blood 268 mg/dL (70-110)
[2024-11-09] MEDS: QUEtiapine 50 MG TAB PO SCH (19:57)
[2024-11-10 07:56] LABS: Glucose,Whole Blood 187 mg/dL (70-110)
--- NOTE | 2024-11-10 10:31 | P.PN ---
Progress Note - Text Progress Note Date: 11/10/24 Interval history: Patient was seen today for psychiatric follow-up. Patient claims that she has been taking her medications. She continues to focus on discharge. Continues to be somewhat intrusive however more redirectable today. Less focused on her medications today. Patient was seen with a one-to-one sitter today. She was up earlier at the medication window, requesting to speak with newswriter. Continues to mainly keep herself on the unit. Apparently did a Zyprexa as needed dose today. Claims she has been sleeping on and off. She appears to be less bizarre today, not reporting any side effects or problems with her medications. Not reporting any muscle stiffness. Continues to have fairly poor insight and judgment, this appears to be chronic. Reality testing improving mildly. Not endorsing any delusions today or grandiosity. Denying any auditory or visual hallucinations. Denying any suicidal homicidal ideations intent or plan. Not reporting any side effects on the medications has been taking them. continues to endorse anxiety MENTAL STATUS EXAM: General Appearance: Patient appears to be older than stated age, hair appears clean and neatly combed, dressed in hospital gown with sweatshirt. Behavior: Patient is sitting i on her bed, difficult to redirect during c onversation. less Impulsive, attempts to cooperate Speech: Patient's speech is fluent and non-pressured. less Intrusive Mood/Affect: Patient reports their mood is "just anxious", affect is congruent Suicidality/Homicidality: Patient denies having any homicidal ideation intent or plan. Denies any suicidal ideation intent or plan. Perceptions: Patient denies any visual hallucinations. Patient denies auditory hallucinations. Though content/process: Thought process is loose associations; no paranoia/delusions. less Bizarre, less focused on medications Memory and concentration: AOX3, grossly intact for the purposes of this session Judgment and insight: poor chronically, improving mildly IMPRESSIONS: Schizoaffective disorder PLAN: -Patient is admitted under voluntary status to MHU for stabilization of psychiatric symptoms and safety. Patient has signed adult voluntary form and medication consent and is placed in patient's chart. -Currently the preference of her outpatient psychiatrist is for patient to be transferred to an outside hospital for ECT treatment once an accepting facility is found. -evaluate need for 1:1 monitoring with team and nurses -Medications: taper off Haldol PO 4 mg tid for psychosis/mood, with plan to transition onto MESSER today, will give Haldol D 100 mg IM today increase seroquel 25 mg daily + 100 mg qhs for sleep/mood stabilization/psychosis Continue Klonopin 0.25 mg TID for anxiety. buspar 10 mg tid for anxiety Trazodone 50 mg p.o. at bedtime prn for sleep. cogentin 0.5 mg bid for eps reaction -Haldol PRN for agitation/aggression -NRT - not needed as patient does not smoke. -Social work on board for discharge planning/transfer to another facility for inpatient ECT treatment if another facility/ Accepts patient. Encourage participation in milieu. Continuing to work on psychiatric stabilization with medications and treatment on the unit.
[2024-11-10] MEDS: HALOPERIDOL DECANOATE 100 MG/ML 1 ML VIAL IM STA (11:07)
[2024-11-10 12:41] LABS: Glucose,Whole Blood 199 mg/dL (70-110)
[2024-11-10 17:37] LABS: Glucose,Whole Blood 144 mg/dL (70-110)
[2024-11-10] MEDS: QUEtiapine 100 MG TAB PO SCH (20:09)
[2024-11-10 20:23] LABS: Glucose,Whole Blood 173 mg/dL (70-110)
[2024-11-11] MEDS: traZODone HCL 50 MG TAB PO PRN (01:56)
[2024-11-11 07:52] LABS: Glucose,Whole Blood 185 mg/dL (70-110)
[2024-11-11] MEDS: QUEtiapine 25 MG TAB PO SCH (08:40)
--- NOTE | 2024-11-11 10:59 | P.PN ---
Progress Note - Text Progress Note Date: 11/11/24 Interval history: Patient was seen today for psychiatric follow-up. Patient was seen earlier in the hallways, was attempting to speak to commercial lines underwriter. She seemed to be in mild distress and wanting to speak with commercial lines underwriter. She apparently had difficulty initiating sleep and required trazodone last night. She slept through the night after that. Patient has been compliant with medications. She is not reporting any side effects at this time. Claims that she is still feeling anxious at this time. She was asking about other medication for anxiety and requested to take commercial lines underwriter to the medication window to help her with this. She appears to be less bizarre today, not reporting any side effects or problems with her medications. Not reporting any muscle stiffness. Continues to have fairly poor insight and judgment, this appears to be chronic. Reality testing improving mildly. Not endorsing any delusions today or grandiosity. Denying any auditory or visual hallucinations. Denying any suicidal homicidal ideations intent or plan. Not reporting any side effects on the medications has been taking them. continues to endorse anxiety. She was asking about discharge today. MENTAL STATUS EXAM: General Appearance: Patient appears to be older than stated age, hair appears clean and neatly combed, dressed in hospital gown with sweatshirt. Behavior: Patient is sitting i on her bed, difficult to redirect during conversation. less Impulsive, attempts to cooperate Speech: Patient's speech is fluent and non-pressured. less Intrusive Mood/Affect: Patient reports their mood is "Im anxious", affect is congruent and constricted Suicidality/Homicidality: Patient denies having any homicidal ideation intent or plan. Denies any suicidal ideation intent or plan. Perceptions: Patient denies any visual hallucinations. Patient denies auditory hallucinations. Though content/process: Thought process is loose associations; no paranoia/delusions. less Bizarre, less focused on medications. Focused on discharge Memory and concentration: AOX3, grossly intact for the purposes of this session Judgment and insight: poor chronically, improving mildly IMPRESSIONS: Schizoaffective disorder PLAN: -Patient is admitted under voluntary status to [facility] for stabilization of psychiatric symptoms and safety. Patient has signed adult voluntary form and medication consent and is placed in patient's chart. -Currently the preference of her outpatient psychiatrist is for patient to be transferred to an outside hospital for ECT treatment once an accepting facility is found. -evaluate need for 1:1 monitoring with team and nurses -Medications: taper off Haldol PO 4 mg bid for psychosis/mood, with last dose scheduled for tomorrow morning. Patient received Haldol D 100 mg IM on 11/10 and will recieve next dose of 100 mg IM tomorrow. increase seroquel 50 mg daily + 100 mg qhs for sleep/mood stabi lization/psychosis Continue Klonopin 0.25 mg TID for anxiety. increase buspar 15 mg tid for anxiety Trazodone 50 mg p.o. at bedtime prn for sleep. increase cogentin 1 mg bid for eps reaction -Haldol PRN for agitation/aggression -NRT - not needed as patient does not smoke. -Social work on board for discharge planning/transfer to another facility for inpatient ECT treatment if another facility/ Accepts patient. Encourage participation in milieu. Continuing to work on psychiatric stabilization with medications and treatment on the unit. hopeful for discharge early next week if patient is improving.
[2024-11-11] MEDS: QUEtiapine 25 MG TAB PO STA (12:04)
[2024-11-11 12:46] LABS: Glucose,Whole Blood 141 mg/dL (70-110)
[2024-11-11] MEDS: busPIRone HCl 5 MG TAB PO SCH (15:19)
[2024-11-11 17:42] LABS: Glucose,Whole Blood 120 mg/dL (70-110)
[2024-11-11 20:32] LABS: Glucose,Whole Blood 198 mg/dL (70-110)
[2024-11-11] MEDS: QUEtiapine 100 MG TAB PO SCH (20:32)
[2024-11-11] MEDS: BENZTROPINE MESYLATE 1 MG TAB PO SCH (20:33)
[2024-11-12 07:56] LABS: Glucose,Whole Blood 161 mg/dL (70-110)
[2024-11-12] MEDS: QUEtiapine 50 MG TAB PO SCH (08:14)
--- NOTE | 2024-11-12 11:13 | P.PN ---
Progress Note - Text Progress Note Date: 11/12/24 Interval history: Patient was seen wandering the hallways and was directable and agreeable to s peak with ad writer. Patient continues to be intrusive at times, states that she is still feeling anxious. She continues to be illogical at times rambles at times. Was more directable today, denying any depression. States that she has been eating her meals slept last night. At this time patient denies any suicidal or homicidal ideations intent or plan. Denies any Auditory or visual hallucinations. Patient denies any side effects from the medications and has been compliant with meds. Mental status exam: General Appearance: Patient appears to be stated age is alert, directable, and cooperative. Wandering the hallways Behavior: No agitated behavior. Patient is calm and directable Speech: Patient's speech is fluent and nonpressured. Mood/Affect: Mood is improving mildly, affect is congruent and constricted. Suicidality/Homicidality: Patient denies having any suicidal or homicidal ideation intent or plan. Perceptions: Patient denies any auditory or visual hallucinations. Though content/process: There is no evidence of any delusional thought content and thought process is linear and goal-directed. Rambles at times. Memory and concentration: AOX3, grossly intact for the purposes of this session Judgment and insight: Phonically poor, improving mildly Assessment/Plan: Continue with current diagnosis. Patient continues to meet criteria for inpatient psychiatric admission for symptom stabilization and safety. Patient will be maintained on current psychotropic medication regimen with the exception of discontinuing Haldol p.o and giving the second dose of Haldol D 100 mg IM today. Monitor for medication compliance and for any psychotropic medication side effects. Will continue to monitor ongoing response to treatment. Encouraged participation in milieu.
[2024-11-12 12:38] LABS: Glucose,Whole Blood 135 mg/dL (70-110)
[2024-11-12 17:34] LABS: Glucose,Whole Blood 150 mg/dL (70-110)
[2024-11-12] MEDS: HALOPERIDOL DECANOATE 100 MG/ML 1 ML VIAL IM ONE (17:44)
[2024-11-12 19:46] LABS: Glucose,Whole Blood 136 mg/dL (70-110)
[2024-11-13 07:56] LABS: Glucose,Whole Blood 175 mg/dL (70-110)
[2024-11-13] MEDS: QUEtiapine 100 MG TAB PO SCH (08:03)
--- NOTE | 2024-11-13 10:55 | P.PN ---
Progress Note - Text Progress Note Date: 11/13/24 Interval history: Patient was seen wandering the hallways and was directable and agreeable to s peak with keno writer / runner. Patient continues to be a bit intrusive with keno writer / runner however was able to follow directions. She claims that he she is still feeling anxious, wandering at times. She answered most questions appropriately. She asked questions about keno writer / runner's clothing today. states that she is still feeling anxious. Was more directable today, denying any depression. States that she has been eating her meals slept last night. At this time patient denies any suicidal or homicidal ideations intent or plan. Denies any Auditory or visual hallucinations. Patient denies any side effects from the medications and has been compliant with meds. Mental status exam: General Appearance: Patient appears to be stated age is alert, directable, and cooperative. Wandering the hallways Behavior: No agitated behavior. Patient is calm and directable Speech: Patient's speech is fluent and nonpressured. Mood/Affect: Mood is improving mildly, affect is congruent and constricted. Suicidality/Homicidality: Patient denies having any suicidal or homicidal ideation intent or plan. Perceptions: Patient denies any auditory or visual hallucinations. Though content/process: There is no evidence of any delusional thought content and thought process is linear and goal-directed. Rambles at times. Memory and concentration: AOX3, grossly intact for the purposes of this session Judgment and insight: chronically poor, improving mildly Assessment/Plan: Continue with current diagnosis. Patient continues to meet criteria for inpatient psychiatric admission for symptom stabilization and safety. Patient will be maintained on current psychotropic medication regimen with the exception of changing Klonopin to 0.5 mg twice daily scheduled for anxiety and trazodone 50 mg nightly for insomnia. Patient's next dose of Haldol the 200 mg IM will be due on 12/05 [id number]. monitor for medication compliance and for any psychotropic medication side effects. Will continue to monitor ongoing response to treatment. Encouraged participation in milieu. Hopeful for discharge tomorrow if patient is improving.
[2024-11-13] MEDS: clonazePAM 0.5 MG TAB PO SCH (11:59)
[2024-11-13 12:11] VITALS: RESP 16
[2024-11-13 12:54] LABS: Glucose,Whole Blood 141 mg/dL (70-110)
[2024-11-13 17:41] LABS: Glucose,Whole Blood 130 mg/dL (70-110)
[2024-11-13 20:02] LABS: Glucose,Whole Blood 142 mg/dL (70-110)
[2024-11-13] MEDS: traZODone HCL 50 MG TAB PO SCH (20:17)
[2024-11-14 07:59] LABS: Glucose,Whole Blood 158 mg/dL (70-110)
--- NOTE | 2024-11-14 10:03 | P.PN ---
Progress Note - Text Progress Note Date: 11/14/24 Interval history: Patient was seen wandering the hallways and was directable and agreeable to s peak with poem writer. She was attempting to call on the phone a number. Continues to be a bit intrusive however was fairly directable. She is agreeable to speak in the room today. She again commented on poem writer's clothing. She apparently needed a Zyprexa dose last night to help her with sleep. Continues to be wandering the hallway and asking for as needed medications. Continues to claim that she is feeling anxious. Was more directable today, denying any depression. Focused on discharge. States that she has been eating her meals slept last night. At this time patient denies any suicidal or homicidal ideations intent or plan. Denies any Auditory or visual hallucinations. Patient denies any side effects from the medications and has been compliant with meds. Mental status exam: General Appearance: Patient appears to be stated age is alert, directable, and cooperative. Wandering the hallways Behavior: No agitated behavior. Patient is calm and directable, somewhat intrusive Speech: Patient's speech is fluent and nonpressured. Mood/Affect: Mood is improving mildly, affect is congruent and constricted. Suicidality/Homicidality: Patient denies having any suicidal or homicidal id eation intent or plan. Perceptions: Patient denies any auditory or visual hallucinations. Though content/process: There is no evidence of any delusional thought content and thought process is linear and goal-directed. Rambles at times. Memory and concentration: AOX3, grossly intact for the purposes of this session Judgment and insight: chronically poor, improving mildly Assessment/Plan: Continue with current diagnosis. Patient continues to meet criteria for inpatient psychiatric admission for symptom stabilization and safety. Patient will be maintained on current psychotropic medication regimen with the exception of increasing trazodone 100 mg nightly for insomnia/mood, seroquel qhs dose to 150 mg and also increasing buspar to 20 mg tid for anxiety. Patient's next dose of Haldol the 200 mg IM will be due on 12/05 [id number]. monitor for medication compliance and for any psychotropic medication side effects. Will continue to monitor ongoing response to treatment. Encouraged participation in milieu. Hopeful for discharge tomorrow if patient is improving and sleeping well.
[2024-11-14 12:42] LABS: Glucose,Whole Blood 118 mg/dL (70-110)
[2024-11-14] MEDS: busPIRone HCl 10 MG TAB PO SCH (16:26)
[2024-11-14 17:45] LABS: Glucose,Whole Blood 172 mg/dL (70-110)
[2024-11-14] MEDS: traZODone HCL 100 MG TAB PO SCH (20:22)
[2024-11-14] MEDS: QUEtiapine 50 MG TAB PO SCH (20:23)
[2024-11-14 20:30] LABS: Glucose,Whole Blood 129 mg/dL (70-110)
[2024-11-15 07:16] VITALS: TEMP 97.8
[2024-11-15 07:49] LABS: Glucose,Whole Blood 148 mg/dL (70-110)
[2024-11-15 08:15] VITALS: BP 108/73; PULSE 137
--- NOTE | 2024-11-15 11:57 | P.DS ---
Providers Date of admission: 10/29/24 17:23 Expected date of discharge: 11/15/24 Attending physician: Emanuel Braswell MD Consults: 10/29/24 17:32 Consult Physician Routine Consulting Provider: Adam José Consult Reason/Comments: History and Physical, New Admission Do you want consulting provider notified?: Yes Primary care physician: Smita June - Discharge Diagnosis(es) (1) Schizoaffective disorder Current Visit: Yes Status: Acute Priority: High Hospital Course: Admission HPI: Admission note was completed by Dr dozier "patient is a 59 years old female with past psychiatric history of schizophrenia presented to the ER with her son for altered mental status evaluation. Patient presented to the hospital with her son for altered mental status evaluation. Family were concerned about anxiety and hallucination, patient reported that she has been having increase in anxiety, disorganized thought process was noted throughout the interview, she required frequent redirection. Reported that there is someone at the gas station " follows me around with piercing eyes." Denied suicidal, homicidal thoughts or behavior, denied auditory or visual hallucination. The patient family reported that about 3 weeks ago patient was admitted to inpatient psychiatric hospital, and she was discharged at the end of September, reported that since then patient mental status has been worsening. They reported that she was making a comment about " a man at the gas station" and they was not sure what she was referring to. Report patient medication was adjusted during the last hospitalization, Latuda was discontinued and she was started on risperidone however that was not helping and had outpatient psychiatrist restart her back on Latuda 20 mg and discontinued risperidone. They kept her on clozapine 150 mg daily and 200 mg at night which she has been compliant with per report. Upon evaluation in the unit patient was at the nurses station asking them to talk to her , she was fixated on talking to her and to "Dr. Suazo" she claimed to be her outpatient psychiatrist. The patient was redirected and agreed to speak with the writer technical publications in the office. She states that "I can't tell you, I want to talk to Dr. Tanner, I'm loosing my mind, everyone staring at me." The patient was reassured about her safety. She states that her and her son brought her into the hospital yesterday since " I was losing my mind" and she could not elaborate more on that. She states " I have ECT scheduled" and could not elaborate on that as well and reported she had multiple "shock therapy" in the past. States that she has been taking her medication and repor patricia her to give it to her every day. Reported that she has been feeling down, depressed, reported her sleep to be not that great, admitted to good appetite, she denied any current suicidal, self-harm or homicidal thoughts or behavior. Denied any previous history of suicide. Patient was so paranoid and reported that she has been hearing her own thoughts for all of her life, reported that her will know more. The patient was fixated on calling her , she stood up multiple times and wanted to use the phone to talk to her . Thought process was circumstantial, nonsensical and illogical. Patient was repeating some of the statements over and over " I see you, I see you" " I want to speak to my doctor, I want to speak to my doctor." The patient was oriented to place, person. The patient was irritated and stood up and was fixated on calling her and the interview was concluded at that time. She seemed to be confused and disorganized. Reported that she has been smoking half a pack for years, she denied using any licit substance, cannabis or alcohol." Hospital course: Upon admission to the unit patient was directable and agreeable to commence treatment and signed adult voluntary form. Patient soon after signed an AMA form however then rescinded it, patient then proceeded again to sign an AMA form which was up for reevaluation on 11/15 discharge date. Patient was initially bizarre, intrusive however with time and treatment she eventually got along well with other patients on the unit and followed unit protocol. Patient was compliant with the medications and denied any side effects throughout hospital course. Patient was started on haloperidol p.o. increased to a total dose of 20 mg daily for psychosis, patient was agreeable to be transition onto Haldol D given 100 mg IM then a second dose of 100 mg IM totaling 200 mg. Patient will be due for her next dose of Haldol D 200 mg IM on 12/05 every 3 weeks. Patient was also restarted back on Klonopin 0.5 mg twice daily for anxiety, BuSpar 20 mg 3 times daily for anxiety, trazodone 100 mg nightly for sleep/mood, Cogentin 1 mg twice daily for EPS reaction. Patient was also started on Seroquel 100 mg daily +150 mg nightly for mood SLIP stabilization, psychosis adjunct/sleep. Patient spoke of her stressors and engaged in therapy both group and individual. Patient was also seen by medical team for history and physical exam. Patient's outpatient psychiatrist Dr. Mercer reported to writer technical publications that patient had a long history of ECT treatment which helped her symptoms however stopped going. He assisted in the process of attempting to transfer patient directly from the mental health unit to [facility] for inpatient ECT. [facility] did not accept patient as a transfer for ect treatment and outpatient psychiatrist was informed of this and he can facilitate this admission to [facility] for ect once patient is discharged from the unit. Super[employer] also spoke with patient's Marko over the phone who asked questions about patient's condition and treatment and also informed him of the plan going forward with medications and also long-acting injection. Also informed him of the above regarding ECT treatment as an outpatient basis if he wants to pursue that with the outpatient psychiatrist. Throughout the course of the hospitalization patient gradually improved with regards to mood, anxiety, mood lability, psychosis, intrusiveness, sleep and returned back to their baseline level of functioning. On the day of discharge patient denied any suicidal or homicidal ideations intent or plan denied any auditory or visual hallucinations. Patient endorsed wanting to live for their health and family. The patient denied any access to guns or weapons. Patient denied any paranoia and did not endorse any delusions. Patient does not have a significant history of substance abuse and was counseled on abstaining from all substances including alcohol and marijuana. Patient was also counseled on the medications and need for regular compliance and was encouraged to follow-up with their outpatient appointment for mental health and also for primary care. Prior to discharge a family meeting will be arranged by social work coordinator to answer any questions and ensure safety upon discharge incuding making sure that guns/weapons are either removed from the home or locked away. Mental status exam: General Appearance: Patient appears to be stated age is alert, pleasant, and attempts to be cooperative. Patient is in no acute distress and has improved hygiene and grooming Behavior: Patient is calmly seated without any agitated behavior. Mildly intrusive at times, however polite. More appropriate Speech: Patient's speech is fluent and nonpressured. Mood/Affect: Patient reports their mood is "ok", affect is congruent and improving Suicidality/Homicidality: Patient denies having any suicidal or homicidal ideation intent or plan. Perceptions: Patient denies any auditory or visual hallucinations. Though content/process: There is no evidence of any delusional thought content and thought process is linear and goal-directed. Fairly concrete Memory and concentration: AOX3, grossly intact for the purposes of this session. Can spell "WORLD" backwards correctly. Judgment and insight: Chronically poor/limited, however has improved with guarded prognosis Impression: Schizoaffective disorder Plan: -Continue with discharge today as patient has improved and stabilized psychiatrically and is not currently an imminent threat to themself and/or others. Patient will remain at chronically elevated risk for harm to self and/or others due to their impulsivity and chronic mental illness -Continue medications: Haldol D 200 mg IM every 3 weeks, next dose will be due on 12/05 as an outpatient. Seroquel 100 mg daily +150 mg nightly for sleep/mood stabilization/psychosis adjunct, Klonopin 0.5 mg twice daily for anxiety, BuSpar 20 mg 3 times daily for anxiety, trazodone 100 mg nightly for sleep/mood, Cogentin 1 mg twice daily for EPS reaction -Patient was counseled on the need for medication compliance and appropriate follow-up at mental health and also primary care for medical issues. Patient verbalized understanding and agreed. -Social work to arrange for and conduct family meeting to ensure safety upon discharge and answer any questions/concerns. Supervisor [employer] also spoke with patient's as noted above to answer questions regarding treatment prognosis and plan going forward. Also to ensure safe home environment that guns/weapons are either removed from the home or locked away. Social work also to arrange for patients follow up appointments with her outpatient psychiatrist Dr Mercer for psychiatric care along with follow up with primary care provider. -Patient counseled on abstaining from recreational drugs and marijuana and alcohol. Was informed/educated on the adverse effects on their physical and mental health. Patient verbally agreed and understood. -Patient was instructed to return to the hospital or seek immediate medical care if their psychiatric or medical symptoms do worsen or reoccur. Allergies Allergy/AdvReac Type Severity Reaction Status Date / Time No Known Allergies Allergy Verified 10/29/24 16:01 Laboratory Results WBC 8.4 k/uL (3.8-10.6) 11/09/24 10:04 RBC 3.71 m/uL (3.80-5.40) L 11/09/24 10:04 Hgb 11.6 gm/dL (11.4-16.0) 11/09/24 10:04 Hct 34.8 % (34.0-46.0) 11/09/24 10:04 MCV 93.9 fL (80.0-100.0) 11/09/24 10:04 MCH 31.3 pg (25.0-35.0) 11/09/24 10:04 MCHC 33.4 g/dL (31.0-37.0) 11/09/24 10:04 RDW 12.9 % (11.5-15.5) 11/09/24 10:04 Plt Count 196 k/uL (150-450) 11/09/24 10:04 MPV 6.9 11/09/24 10:04 Neutrophils % 73 % 11/09/24 10:04 Lymphocytes % 19 % 11/09/24 10:04 Monocytes % 5 % 11/09/24 10:04 Eosinophils % 1 % 11/09/24 10:04 Basophils % 1 % 11/09/24 10:04 Neutrophils # 6.1 k/uL (1.3-7.7) 11/09/24 10:04 Lymphocytes # 1.6 k/uL (1.0-4.8) 11/09/24 10:04 Monocytes # 0.4 k/uL (0-1.0) 11/09/24 10:04 Eosinophils # 0.1 k/uL (0-0.7) 11/09/24 10:04 Basophils # 0.1 k/uL (0-0.2) 11/09/24 10:04 PT 10.4 sec (10.0-12.5) 10/29/24 12:13 INR 0.9 (<1.2) 10/29/24 12:13 APTT 21.7 sec (22.0-30.0) L 10/29/24 12:13 Sodium 135 mmol/L (137-145) L 10/29/24 12:13 Potassium 4.6 mmol/L (3.5-5.1) 10/29/24 12:13 Chloride 105 mmol/L (98-107) 10/29/24 12:13 Carbon Dioxide 20 mmol/L (22-30) L 10/29/24 12:13 Anion Gap 10 mmol/L 10/29/24 12:13 BUN 10 mg/dL (7-17) 10/29/24 12:13 Creatinine 0.88 mg/dL (0.52-1.04) 10/29/24 12:13 Est GFR (CKD-EPI)AfAm 83 (>60 ml/min/1.73 sqM) 10/29/24 12:13 Est GFR (CKD-EPI)NonAf 72 (>60 ml/min/1.73 sqM) 10/29/24 12:13 Glucose 284 mg/dL (74-99) H 10/29/24 12:13 POC Glucose (mg/dL) 148 mg/dL (70-110) H 11/15/24 07:46 POC Glu Funder ID Marva Anna 11/15/24 07:[address] Glu mg/dL 177 mg/dL 10/29/24 12:13 Hemoglobin A1c 7.8 % (<=6.0) H 10/29/24 12:13 Calcium 9.6 mg/dL (8.4-10.2) 10/29/24 12:13 Total Bilirubin 0.7 mg/dL (0.2-1.3) 10/29/24 12:13 AST 22 U/L (14-36) 10/29/24 12:13 ALT 43 U/L (4-34) H 10/29/24 12:13 Alkaline Phosphatase 131 U/L (38-126) H 10/29/24 12:13 Total Protein 6.2 g/dL (6.3-8.2) L 10/29/24 12:13 Albumin 4.1 g/dL (3.5-5.0) 10/29/24 12:13 Triglycerides 122.00 mg/dL (0.00-149.00) 10/29/24 12:13 Cholesterol 100.00 mg/dL (0.00-200.00) 10/29/24 12:13 LDL Cholesterol, Calc 24.0 mg/dL (0.0-131.0) 10/29/24 12:13 VLDL Cholesterol, Calc 24.40 mg/dL (5.00-40.00) 10/29/24 12:13 HDL Cholesterol 51.60 mg/dL (40.00-60.00) 10/29/24 12:13 Cholesterol/HDL Ratio 1.94 Ratio 10/29/24 12:13 TSH 0.721 mIU/L (0.465-4.680) 10/29/24 12:13 Urine Color Colorless 10/29/24 11:20 Urine Appearance Clear (Clear) 10/29/24 11:20 Urine pH 6.0 (5.0-8.0) 10/29/24 11:20 Ur Specific [place] 1.003 (1.001-1.035) 10/29/24 11:20 Urine Protein Negative (Negative) 10/29/24 11:20 Urine Glucose (UA) 4+ (Negative) H 10/29/24 11:20 Urine Ketones Negative (Negative) 10/29/24 11:20 Urine Blood Negative (Negative) 10/29/24 11:20 Urine Nitrite Negative (Negative) 10/29/24 11:20 Urine Bilirubin Negative (Negative) 10/29/24 11:20 Urine Urobilinogen <2.0 mg/dL (<2.0) 10/29/24 11:20 Ur Leukocyte Esterase Negative (Negative) 10/29/24 11:20 Urine Opiates Screen Not Detected (NotDetected) 10/29/24 11:20 Ur Oxycodone Screen Not Detected (NotDetected) 10/29/24 11:20 Urine Methadone Screen Not Detected (NotDetected) 10/29/24 11:20 Ur Barbiturates Screen Not Detected (NotDetected) 10/29/24 11:20 U Tricyclic Antidepress Not Detected (NotDetected) 10/29/24 11:20 Ur Phencyclidine Scrn Not Detected (NotDetected) 10/29/24 11:20 Clozapine 575 ng/mL (200-700) 10/29/24 18:22 Norclozapine 494 ng/mL (200-700) 10/29/24 18:22 Ur Amphetamines Screen Not Detected (NotDetected) 10/29/24 11:20 U Methamphetamines Scrn Not Detected (NotDetected) 10/29/24 11:20 U Benzodiazepines Scrn Detected (NotDetected) H 10/29/24 11:20 Urine Cocaine Screen Not Detected (NotDetected) 10/29/24 11:20 U Marijuana (THC) Screen Not Detected (NotDetected) 10/29/24 11:20 SARS-CoV-2 (PCR) Not Detected (Not Detectd) 10/29/24 15:54 Vital Signs Temp 97.8 F 11/15/24 06:45 Pulse 137 H 11/15/24 08:15 Resp 16 11/15/24 06:45 BP 108/73 11/15/24 08:15 Pulse Ox 99 11/15/24 06:45 FiO2 Patient Condition at Discharge: Stable Plan - Discharge Summary Discharge Rx Participant: No New Discharge Prescriptions: New Benztropine Mesylate [Cogentin] 1 mg PO BID 30 Days #60 tab traZODone HCL [Desyrel] 100 mg PO HS 30 Days #30 tab Haloperidol Decanoate [Haldol D] 200 mg IM Q21D #1 each QUEtiapine [SEROquel] 100 mg PO DAILY 30 Days #30 tab busPIRone HCl [Buspar] 20 mg PO TID 30 Days #180 tab clonazePAM [KlonoPIN] 0.5 mg PO BID 10 Days #20 tab Ibuprofen [Motrin] 600 mg PO Q6HR PRN tab PRN Reason: Moderate Pain (Scale 4 To 6) INSULIN ASPART (NovoLOG) [NovoLOG (formulary)] 0 unit SQ ACHS each QUEtiapine [SEROquel] 150 mg PO HS 30 Days #90 tab Continue Insulin Glargine,Hum.rec.anlog [Lantus Solostar Pen] 10 units SQ DAILY Levothyroxine Sodium [Synthroid] 75 mcg PO DAILY INSULIN LISPRO (HumaLOG) [humaLOG] 4 units SQ TID-W/MEALS Atorvastatin [Lipitor] 20 mg PO HS 30 Days #30 tab Albuterol Inhaler [Ventolin Hfa Inhaler] 2 puff INHALATION RT-Q4H PRN 30 Days #1 each PRN Reason: Shortness Of Breath Discontinued Lurasidone [Latuda] 20 mg PO DAILY traZODone HCL [Desyrel] 50 mg PO HS lisinopriL [Zestril] 10 mg PO DAILY clonazePAM [KlonoPIN] 0.5 mg PO TID cloZAPine [Clozaril] 200 mg PO HS cloZAPine [Clozaril] 150 mg PO DAILY Discharge Medication List INSULIN LISPRO (HumaLOG) [humaLOG] 4 units SQ TID-W/MEALS 10/29/24 [History] Insulin Glargine,Hum.rec.anlog [Lantus Solostar Pen] 10 units SQ DAILY 10/29/24 [History] Levothyroxine Sodium [Synthroid] 75 mcg PO DAILY 10/29/24 [History] Albuterol Inhaler [Ventolin Hfa Inhaler] 2 puff INHALATION RT-Q4H PRN 30 Days #1 each 11/15/24 [Rx] Atorvastatin [Lipitor] 20 mg PO HS 30 Days #30 tab 11/15/24 [Rx] Benztropine Mesylate [Cogentin] 1 mg PO BID 30 Days #60 tab 11/15/24 [Rx] Haloperidol Decanoate [Haldol D] 200 mg IM Q21D #1 each 11/15/24 [Rx] INSULIN ASPART (NovoLOG) [NovoLOG (formulary)] 0 unit SQ ACHS each 11/15/24 [Rx] Ibuprofen [Motrin] 600 mg PO Q6HR PRN tab 11/15/24 [Rx] QUEtiapine [SEROquel] 100 mg PO DAILY 30 Days #30 tab 11/15/24 [Rx] QUEtiapine [SEROquel] 150 mg PO HS 30 Days #90 tab 11/15/24 [Rx] busPIRone HCl [Buspar] 20 mg PO TID 30 Days #180 tab 11/15/24 [Rx] clonazePAM [KlonoPIN] 0.5 mg PO BID 10 Days #20 tab 11/15/24 [Rx] traZODone HCL [Desyrel] 100 mg PO HS 30 Days #30 tab 11/15/24 [Rx] Follow up Appointment(s)/Referral(s): [facility], [facility] [Other] - 11/16/24 1:00 pm (Dr. Mercer/ Dr Sheppard 11/16 @ 13:00) Smita June DO [Primary Care Provider] - 1-2 days Patient Instructions/Handouts: Schizoaffective Disorder (DC) Activity/Diet/Wound Care/Special Instructions: [facility] Discharge Info Avoid the use of street drugs and alcohol. Take all medications as prescribed. When you are in need of refills on your medications, please contact your outpatient medical provider and/or outpatient psychiatrist. Please go to your scheduled outpatient appointments for aftercare treatment. If symptoms return or become worse, call the crisis line at or and/or visit the nearest emergency room for assistance. [place] Suicide and Crisis Lifeline - call or text 448 Discharge Disposition: HOME SELF-CARE
[2024-11-15 12:47] LABS: Glucose,Whole Blood 95 mg/dL (70-110)
--- NOTE | 2024-11-15 17:28 | P.PN ---
Progress Note - Text Progress Note Date: 11/15/24 - Chief Complaint Confused - History of Present Illness 59-year-old patient, follows with Dr. Smita June. Medical conditions include diabetes, hyperlipidemia, hypertension, hypothyroid. Also known history of bipolar schizophrenia. Smokes about half a pack a day Patient was brought into the ER by the family. Patient is rather disorganized thought. Wean from 1 topic to the other not making sense. As per the psychiatry notes patient interview had to be stopped because of the same. For me patient is able to answer simple questions. Does use albuterol inhaler as needed. Since missing her cigarettes. Wants to smoke outside. Appetite is fair. Sleeps quite a bit. Denies any pain. No fever no chills. Occasional cough. No respiratory symptoms otherwise. October 31: Patient laying in bed. Did eat her breakfast. When she is talking she is talking about her 's sex life. Then she is talking about her family doctor Dr. madera. Then tells me I am the psychiatrist even though I did introduce myself internal medicine. Wants me to discharge her she she can go back to her . Afterwards I was called that patient took a slow fall in the dining room. Never passed out. Did not hit her head. She was positive for orthostatic. I will stop her Zestril. Ordered half a liter of LR over 4 hours. Continue current dose of insulin. Manual blood pressure: Lying down 109/66 heart rate 77. Sitting 85/52 heart rate 52. Standing heart rate 111. Patient not able to stand for blood pressure. November 05: Was anxious. Still psychosis symptoms. Talks about a particular doctor. Goes from 1 topic to the other. Oral intake fluctuates. Advised about oral intake. Accu-Cheks are reasonable given her variable intake.Antihypertensives were discontinued. November 15: Spoke to the nurse. Patient been tolerating a diet. Ambulatory. Plan is for patient to get discharge. Continue with the current medications. Follow-up with PCP. Denies any pain. She does get a bit anxious while talking. 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 Smokes half a pack a day. Physical examination: VITAL SIGNS: 98, 106, 18, 99 x 60, 96% GENERAL: Comfortable less anxious EYES: Pupils equal. Conjunctiva zeynep l. HEENT: External appearance of nose and ears normal, oral cavity grossly normal. NECK: JVD not raised; masses not palpable. HEART: First and second heart sounds are normal; no edema. LUNGS: Respiratory rate normal; clear to auscultation. ABDOMEN: Soft, nontender, liver spleen not palpable, no masses palpable. PSYCH: Bit anxious. Answering questions. Does talk about a Dr. Matthews. Wanted to make sure I am not Dr. Akbar. MUSCULOSKELETAL:No Clubbing/cyanosis;muscles-grossly intact INVESTIGATIONS, reviewed in the clinical context: November 15: Accu-Cheks 148, 95 October 30: Accu-Chek 186 October 29, 2024: White count 8.6 hemoglobin 12.5 platelets 327 sodium 135 potassium 4.6 creatinine 0.88 LDL 24 TSH 0.7 COVID-19 PCR not detected Assessment plan: -Schizophrenia with progression Medications per psychiatry -Chronic nicotine dependence, cigarette smoker Nicotine patch half a pack a day -Near syncope with orthostatic DC lisinopril. LR 500 cc was given Diabetes mellitus type 2 chronically on insulin Patient on Lantus and Humalog scheduled. Follow Accu-Cheks sliding scale -Hyperlipidemia Lipitor 20 mg nightly -Hypothyroid Synthroid 75 mcg a day -Essential hypertension, running on the lower side Stop Zestril Patient to follow-up with the PCP upon discharge. Thank you Dr. Braswell Past Medical History Past Medical History: Diabetes Mellitus, Hyperlipidemia, Hypertension, Thyroid Disorder History of Any Multi-Drug Resistant Organisms: None Reported Past Surgical History: Appendectomy Past Anesthesia/Blood Transfusion Reactions: No Reported Reaction Smoking Status: Current every day smoker
== END 2024-11-15 13:30 | disposition home or self-care (01) | DRG 885 ==
LOC: EC 10:17 → 3MHU 17:23
PROVIDERS: ADMIT Psychiatry & Neurology Psychiatry; ATTEND Psychiatry & Neurology Psychiatry
DX: F25.9 Schizoaffective disorder, unspecified (principal); R45.851 Suicidal ideations; I10 Essential (primary) hypertension; E11.9 Type 2 diabetes mellitus without complications; E03.9 Hypothyroidism, unspecified; F41.9 Anxiety disorder, unspecified; G47.00 Insomnia, unspecified; F17.210 Nicotine dependence, cigarettes, uncomplicated; E78.5 Hyperlipidemia, unspecified; Z55.5 Less than a high school diploma; Z79.4 Long term (current) use of insulin; Z79.890 Hormone replacement therapy; Z79.899 Other long term (current) drug therapy; Z11.52 Encounter for screening for COVID-19; Z28.21 Immunization not carried out because of patient refusal; Z71.3 Dietary counseling and surveillance
CPT/HCPCS: 36415; 70450; 80053; 80061; 80159; 80306; 81003; 82075; 83036; 84443; 85025; 85610; 85730; 87635; 93005; 99285

== ENCOUNTER 2025-02-18 11:04 | Emergency (ER) | payer MEDICARE ==
[2025-02-18 12:16] LABS: Basophils # (A) 0.05 10*3/uL (0.00-0.10); Basophils % (A) 0.6 %; Eosinophils # (A) 0.09 10*3/uL (0.04-0.35); Eosinophils % (A) 1.2 %; HCT 40.5 % (37.2-46.3); HGB 14.2 g/dL (12.0-15.0); Lymphocytes # (A) 2.17 10*3/uL (0.90-5.00); Lymphocytes % (A) 28.1 %; MCH 31.1 pg (27.0-32.0); MCHC 35.1 g/dL (32.0-37.0); MCV 88.8 fL (80.0-97.0); Mean Platelet Volume 8.7 fL (9.5-12.2); Monocytes # (A) 0.52 10*3/uL (0.20-1.00); Monocytes % (A) 6.7 %; Neutrophils # (A) 4.86 10*3/uL (1.80-7.70); Neutrophils % (A) 63.1 %; Platelet Count 268 10*3/uL (140-440); RBC 4.56 10*6/uL (4.10-5.20); RDW 12.7 % (11.5-14.5); WBC 7.71 10*3/uL (4.50-10.00)
--- NOTE | 2025-02-18 12:21 | ED ---
Psych HPI - General Source: patient, family Mode of arrival: ambulatory <Dave Witt - Last Filed: 02/18/25 22:20> <Alana Segura - Last Filed: 02/19/25 00:46> - General Chief Complaint: Psychiatric Symptoms Stated Complaint: mental health Time Seen by Provider: 02/18/25 11:21 - History of Present Illness Initial Comments: -year-old female accompanied by her daughter presenting for mental health evaluation. Patient reports "I am having a nervous breakdown". Patient is easily distracted and poor historian. Daughter reports that the patient is not eating or taking care of herself. Patient denies any suicidal or homicidal ideation "I would never want to kill anyone". Patient reports that her helps her with her medications in the evening and her daughter helps her with her medications in the morning. Patient is very anxious and paranoid. She denies any pain. (Dave Witt) - Related Data Home Medications Medication Instructions Recorded Confirmed INSULIN LISPRO (HumaLOG) [humaLOG] See Protocol SQ TID-W/MEALS 10/29/24 02/18/25 Insulin Glargine,Hum.rec.anlog 10 units SQ DAILY 10/29/24 02/18/25 [Lantus Solostar Pen] Levothyroxine Sodium [Synthroid] 75 mcg PO DAILY 10/29/24 02/18/25 cloZAPine [Clozaril] 100 mg PO DAILY 02/18/25 02/18/25 cloZAPine [Clozaril] 300 mg PO HS 02/18/25 02/18/25 clonazePAM [KlonoPIN] 0.5 mg PO TID 02/18/25 02/18/25 Previous Rx's Medication Instructions Recorded Atorvastatin [Lipitor] 20 mg PO HS 30 Days #30 tab 11/15/24 traZODone HCL [Desyrel] 100 mg PO HS 30 Days #30 tab 11/15/24 Allergies Allergy/AdvReac Type Severity Reaction Status Date / Time No Known Allergies Allergy Verified 02/18/25 11:15 Review of Systems ROS Other: All systems not noted in ROS Statement are negative. <Dave Witt - Last Filed: 02/18/25 22:20> ROS Other: All systems not noted in ROS Statement are negative. <Alana Segura - Last Filed: 02/19/25 00:46> ROS Statement: Those systems with pertinent positive or pertinent negative responses have been documented in the HPI. Past Medical History Past Medical History: Diabetes Mellitus, Hyperlipidemia, Hypertension History of Any Multi-Drug Resistant Organisms: None Reported Past Surgical History: Appendectomy Past Anesthesia/Blood Transfusion Reactions: No Reported Reaction Past Psychological History: Schizophrenia Smoking Status: Current every day smoker Past Alcohol Use History: None Reported Past Drug Use History: None Reported <Dave Witt - Last Filed: 02/18/25 22:20> General Exam Limitations: no limitations General appearance: alert, in no apparent distress, anxious Head exam: Present: atraumatic, normocephalic, normal inspection Eye exam: Present: normal appearance, EOMI Neck exam: Present: normal inspection. Absent: meningismus Respiratory exam: Absent: respiratory distress Neurological exam: Present: alert, oriented X3 Psychiatric exam: Present: anxious Skin exam: Present: warm, dry, normal color <Dave Witt - Last Filed: 02/18/25 22:20> Course Vital Signs 02/18/25 11:10 Temperature 98.2 F Pulse Rate 109 H Respiratory 18 Rate Blood Pressure 173/72 O2 Sat by Pulse 98 Oximetry Medical Decision Making - Lab Data Result diagrams: 02/18/25 12:04 02/18/25 12:04 <Dave Witt - Last Filed: 02/18/25 22:20> - Lab Data Result diagrams: 02/18/25 12:04 02/18/25 12:04 <Alana Segura - Last Filed: 02/19/25 00:46> - Medical Decision Making Was pt. sent in by a medical professional or institution (, PA, MATERIAL FLOW ANALYST, urgent care, hospital, or [facility]...) When possible be specific @ -No Did you speak to anyone other than the patient for history (EMS, parent, family, police, friend...)? What history was obtained from this source @ -Daughter Did you review nursing and triage notes (agree or disagree)? Why? @ -I reviewed and agree with nursing and triage notes Were old charts reviewed (outside hosp., previous admission, EMS record, old EKG, old radiological studies, urgent care reports/EKG's, [facility] records)? Report findings @ -No old charts were reviewed Differential Diagnosis (chest pain, altered mental status, abdominal pain women, abdominal pain men, vaginal bleeding, weakness, fever, dyspnea, syncope, headache, dizziness, GI bleed, back pain, seizure, CVA, palpatations, mental health, musculoskeletal)? @ -Differential Mental Health Depression, anxiety, bipolar, psychosis, schizophrenia, borderline personality, situational depression, adjustment disorder, behavioral disorder, brain tumor, malingering, substance abuse, encephalopathy, medication reaction, dementia, hypothyroidism, degenerative neurologic disorder, lupus.... This is not meant to be all-inclusive list EKG interpreted by me (3pts min.). @ -As above X-rays interpreted by me (1pt min.). @ -None done CT interpreted by me (1pt min.). @ -None done U/S interpreted by me (1pt. min.). @ -None done What testing was considered but not performed or refused? (CT, X-rays, U/S, labs)? Why? @ -None What meds were considered but not given or refused? Why? @ -None Did you discuss the management of the patient with other professionals (professionals i.e. , PA, MATERIAL FLOW ANALYST, lab, RT, psych nurse, 7th grade social studies teacher, pensionholder information clerk, teacher, special forces officer, caser up)? Give summary @ -Spoke with EPS nurse who recommends [facility] admission Was smoking cessation discussed for >3mins.? @ -No Was critical care preformed (if so, how long)? @ -No Were there social determinants of health that impacted care today? How? (Homelessness, low income, unemployed, alcoholism, drug addiction, transportation, low edu. Level, literacy, decrease access to med. care, correction, rehab)? @ -No Was there de-escalation of care discussed even if they declined (Discuss DNR or withdrawal of care, Hospice)? DNR status @ -No What co-morbidities impacted this encounter? (DM, HTN, Smoking, COPD, CAD, C ancer, CVA, ARF, Chemo, Hep., AIDS, mental health diagnosis, sleep apnea, morbid obesity)? @ -History of psychosis Was patient admitted / discharged? Hospital course, mention meds given and route, prescriptions, significant lab abnormalities, going to OR and other pertinent info. @ -59-year-old female presenting with her daughter for mental health evaluation. Daughter reports that the patient is not taking care of herself. She is not keeping up with her hygiene and eating or drinking. Patient has a mental health history, her medications are managed by her and her daughter. No suicidal homicidal ideation. History and physical examination are conducted. Patient is medically cleared. Evaluated by EPS who determined that the patient meets criteria for admission. She will be a [facility] transfer. Patient and family agreeable with this plan Undiagnosed new problem with uncertain prognosis? @ -No Drug Therapy requiring intensive monitoring for toxicity (Heparin, Nitro, In sulin, Cardizem)? @ -No Were any procedures done? @ -No Diagnosis/symptom? @ -Psychosis Acute, or Chronic, or Acute on Chronic? @ -Acute Uncomplicated (without systemic symptoms) or Complicated (systemic symptoms)? @ -Complicated Side effects of treatment? @ -No Exacerbation, Progression, or Severe Exacerbation? @ -No Poses a threat to life or bodily function? How? (Chest pain, USA, ME, pneumonia, PE, COPD, DKA, ARF, appy, cholecystitis, CVA, Diverticulitis, Homicidal, Suicidal, threat to staff... and all critical care pts) @ -Yes (Dave Witt) Patient is accepted at [facility]. Departure time will be at 6 AM. (Alana Segura) - Lab Data Lab Results 02/18/25 02/18/25 02/18/25 Range/Units 12:04 12:04 12:04 WBC 7.71 (4.50-10.00) 10*3/uL RBC 4.56 (4.10-5.20) 10*6/uL Hgb 14.2 (12.0-15.0) g/dL Hct 40.5 (37.2-46.3) % MCV 88.8 (80.0-97.0) fL MCH 31.1 (27.0-32.0) pg MCHC 35.1 (32.0-37.0) g/dL Plt Count 268 (140-440) 10*3/uL MPV 8.7 L (9.5-12.2) fL Immature Gran % (Auto) 0.3 % Neutrophils % 63.1 % Lymphocytes % 28.1 % Monocytes % 6.7 % Eosinophils % 1.2 % Basophils % 0.6 % Immature Gran # 0.02 (0.00-0.04) 10*3/uL Neutrophils # 4.86 (1.80-7.70) 10*3/uL Lymphocytes # 2.17 (0.90-5.00) 10*3/uL Monocytes # 0.52 (0.20-1.00) 10*3/uL Eosinophils # 0.09 (0.04-0.35) 10*3/uL Basophils # 0.05 (0.00-0.10) 10*3/uL Sodium 135 L (137-145) mmol/L Potassium 4.4 (3.5-5.1) mmol/L Chloride 99 (98-107) mmol/L Carbon Dioxide 25 (22-30) mmol/L Anion Gap 11 mmol/L BUN 21 H (7-17) mg/dL Creatinine 0.81 (0.52-1.04) mg/dL Est GFR (CKD-EPI)AfAm >90 (>60 ml/min/1.73 sqM) Est GFR (CKD-EPI)NonAf 80 (>60 ml/min/1.73 sqM) Glucose 220 H (74-99) mg/dL POC Glucose (mg/dL) (70-110) mg/dL POC Glu Game Show Host ID Calcium 10.5 H (8.4-10.2) mg/dL Total Bilirubin 0.6 (0.2-1.3) mg/dL AST 33 (14-36) U/L ALT 43 H (4-34) U/L Alkaline Phosphatase 97 (38-126) U/L Total Protein 7.1 (6.3-8.2) g/dL Albumin 4.6 (3.5-5.0) g/dL Urine Color Urine Appearance (Clear) Urine pH (5.0-8.0) Ur Specific [place] (1.001-1.035) Urine Protein (Negative) Urine Glucose (UA) (Negative) Urine Ketones (Negative) Urine Blood (Negative) Urine Nitrite (Negative) Urine Bilirubin (Negative) Urine Urobilinogen (<2.0) mg/dL Ur Leukocyte Esterase (Negative) Salicylates <1.0 mg/dL Urine Opiates Screen (NotDetected) Ur Oxycodone Screen (NotDetected) Urine Methadone Screen (NotDetected) Acetaminophen <10.0 ug/mL Ur Barbiturates Screen (NotDetected) U Tricyclic Antidepress (NotDetected) Ur Phencyclidine Scrn (NotDetected) Ur Amphetamines Screen (NotDetected) U Methamphetamines Scrn (NotDetected) U Benzodiazepines Scrn (NotDetected) Urine Cocaine Screen (NotDetected) U Marijuana (THC) Screen (NotDetected) Influenza Type A (PCR) Not Detected (Not Detectd) Influenza Type B (PCR) Not Detected (Not Detectd) RSV (PCR) Not Detected (Not Detectd) SARS-CoV-2 (PCR) Not Detected (Not Detectd) 02/18/25 02/18/25 02/18/25 Range/Units 12:10 12:10 17:19 WBC (4.50-10.00) 10*3/uL RBC (4.10-5.20) 10*6/uL Hgb (12.0-15.0) g/dL Hct (37.2-46.3) % MCV (80.0-97.0) fL MCH (27.0-32.0) pg MCHC (32.0-37.0) g/dL Plt Count (140-440) 10*3/uL MPV (9.5-12.2) fL Immature Gran % (Auto) % Neutrophils % % Lymphocytes % % Monocytes % % Eosinophils % % Basophils % % Immature Gran # (0.00-0.04) 10*3/uL Neutrophils # (1.80-7.70) 10*3/uL Lymphocytes # (0.90-5.00) 10*3/uL Monocytes # (0.20-1.00) 10*3/uL Eosinophils # (0.04-0.35) 10*3/uL Basophils # (0.00-0.10) 10*3/uL Sodium (137-145) mmol/L Potassium (3.5-5.1) mmol/L Chloride (98-107) mmol/L Carbon Dioxide (22-30) mmol/L Anion Gap mmol/L BUN (7-17) mg/dL Creatinine (0.52-1.04) mg/dL Est GFR (CKD-EPI)AfAm (>60 ml/min/1.73 sqM) Est GFR (CKD-EPI)NonAf (>60 ml/min/1.73 sqM) Glucose (74-99) mg/dL POC Glucose (mg/dL) 238 H (70-110) mg/dL POC Glu Game Show Host ID January Calcium (8.4-10.2) mg/dL Total Bilirubin (0.2-1.3) mg/dL AST (14-36) U/L ALT (4-34) U/L Alkaline Phosphatase (38-126) U/L Total Protein (6.3-8.2) g/dL Albumin (3.5-5.0) g/dL Urine Color Colorless Urine Appearance Clear (Clear) Urine pH 5.5 (5.0-8.0) Ur Specific [place] 1.004 (1.001-1.035) Urine Protein Negative (Negative) Urine Glucose (UA) 2+ H (Negative) Urine Ketones Negative (Negative) Urine Blood Negative (Negative) Urine Nitrite Negative (Negative) Urine Bilirubin Negative (Negative) Urine Urobilinogen <2.0 (<2.0) mg/dL Ur Leukocyte Esterase Negative (Negative) Salicylates mg/dL Urine Opiates Screen Not Detected (NotDetected) Ur Oxycodone Screen Not Detected (NotDetected) Urine Methadone Screen Not Detected (NotDetected) Acetaminophen ug/mL Ur Barbiturates Screen Not Detected (NotDetected) U Tricyclic Antidepress Detected H (NotDetected) Ur Phencyclidine Scrn Not Detected (NotDetected) Ur Amphetamines Screen Not Detected (NotDetected) U Methamphetamines Scrn Not Detected (NotDetected) U Benzodiazepines Scrn Not Detected (NotDetected) Urine Cocaine Screen Not Detected (NotDetected) U Marijuana (THC) Screen Not Detected (NotDetected) Influenza Type A (PCR) (Not Detectd) Influenza Type B (PCR) (Not Detectd) RSV (PCR) (Not Detectd) SARS-CoV-2 (PCR) (Not Detectd) 02/18/25 Range/Units 22:18 WBC (4.50-10.00) 10*3/uL RBC (4.10-5.20) 10*6/uL Hgb (12.0-15.0) g/dL Hct (37.2-46.3) % MCV (80.0-97.0) fL MCH (27.0-32.0) pg MCHC (32.0-37.0) g/dL Plt Count (140-440) 10*3/uL MPV (9.5-12.2) fL Immature Gran % (Auto) % Neutrophils % % Lymphocytes % % Monocytes % % Eosinophils % % Basophils % % Immature Gran # (0.00-0.04) 10*3/uL Neutrophils # (1.80-7.70) 10*3/uL Lymphocytes # (0.90-5.00) 10*3/uL Monocytes # (0.20-1.00) 10*3/uL Eosinophils # (0.04-0.35) 10*3/uL Basophils # (0.00-0.10) 10*3/uL Sodium (137-145) mmol/L Potassium (3.5-5.1) mmol/L Chloride (98-107) mmol/L Carbon Dioxide (22-30) mmol/L Anion Gap mmol/L BUN (7-17) mg/dL Creatinine (0.52-1.04) mg/dL Est GFR (CKD-EPI)AfAm (>60 ml/min/1.73 sqM) Est GFR (CKD-EPI)NonAf (>60 ml/min/1.73 sqM) Glucose (74-99) mg/dL POC Glucose (mg/dL) 130 H (70-110) mg/dL POC Glu Game Show Host ID Navjot Saba Calcium (8.4-10.2) mg/dL Total Bilirubin (0.2-1.3) mg/dL AST (14-36) U/L ALT (4-34) U/L Alkaline Phosphatase (38-126) U/L Total Protein (6.3-8.2) g/dL Albumin (3.5-5.0) g/dL Urine Color Urine Appearance (Clear) Urine pH (5.0-8.0) Ur Specific [place] (1.001-1.035) Urine Protein (Negative) Urine Glucose (UA) (Negative) Urine Ketones (Negative) Urine Blood (Negative) Urine Nitrite (Negative) Urine Bilirubin (Negative) Urine Urobilinogen (<2.0) mg/dL Ur Leukocyte Esterase (Negative) Salicylates mg/dL Urine Opiates Screen (NotDetected) Ur Oxycodone Screen (NotDetected) Urine Methadone Screen (NotDetected) Acetaminophen ug/mL Ur Barbiturates Screen (NotDetected) U Tricyclic Antidepress (NotDetected) Ur Phencyclidine Scrn (NotDetected) Ur Amphetamines Screen (NotDetected) U Methamphetamines Scrn (NotDetected) U Benzodiazepines Scrn (NotDetected) Urine Cocaine Screen (NotDetected) U Marijuana (THC) Screen (NotDetected) Influenza Type A (PCR) (Not Detectd) Influenza Type B (PCR) (Not Detectd) RSV (PCR) (Not Detectd) SARS-CoV-2 (PCR) (Not Detectd) Disposition <Dave Witt - Last Filed: 02/18/25 22:20> Is patient prescribed a controlled substance at d/c from ED?: No Time of Disposition: 00:45 <Alana Segura - Last Filed: 02/19/25 00:46> Clinical Impression: Acute psychosis Disposition: TRANSFER TO PSYCH HOSP/UNIT Condition: Fair Referrals: Smita June DO [Primary Care Provider] - 1-2 days
[2025-02-18 12:27] LABS: ALT 43 U/L (4-34); AST 33 U/L (14-36); Acetaminophen <10.0 ug/mL; African American GFR (CKD) >90 (>60 ml/min/1.73 sqM); Albumin 4.6 g/dL (3.5-5.0); Alkaline Phosphatase 97 U/L (38-126); Anion Gap 11 mmol/L; Blood Urea Nitrogen 21 mg/dL (7-17); Calcium 10.5 mg/dL (8.4-10.2); Carbon Dioxide 25 mmol/L (22-30); Chloride 99 mmol/L (98-107); Glucose 220 mg/dL (74-99); Non-African American GFR(CKD) 80 (>60 ml/min/1.73 sqM); Potassium 4.4 mmol/L (3.5-5.1); Salicylate <1.0 mg/dL; Sodium 135 mmol/L (137-145); Total Bilirubin 0.6 mg/dL (0.2-1.3); Total Protein 7.1 g/dL (6.3-8.2)
[2025-02-18 13:22] LABS: Influenza A Not Detected (Not Detectd); Influenza B Not Detected (Not Detectd); RSV Not Detected (Not Detectd)
[2025-02-18 13:34] LABS: Appearance,Urine Clear (Clear); Bilirubin,Urine Negative (Negative); Blood,Urine Negative (Negative); Color,Urine Colorless; Glucose,Urine (UA) 2+ (Negative); Ketones,Urine Negative (Negative); Leukocyte Esterase,Urine Negative (Negative); Nitrite,Urine Negative (Negative); PH, Urine 5.5 (5.0-8.0); Protein,Urine Negative (Negative); Specific Gravity,Urine 1.004 (1.001-1.035); Urobilinogen,Urine <2.0 mg/dL (<2.0)
[2025-02-18 13:43] LABS: Amphetamine Screen,Urine Not Detected (NotDetected); Benzodiazepines Screen,Urine Not Detected (NotDetected); Cocaine Screen,Urine Not Detected (NotDetected); Opiate Screen,Urine Not Detected (NotDetected); Phencyclidine Screen,Urine Not Detected (NotDetected); Tricyclic Antidepressant,Urine Detected (NotDetected); Urn Cannabinoid Scrn Not Detected (NotDetected)
[2025-02-18 13:44] LABS: Barbiturate Screen,Urine Not Detected (NotDetected); Methadone Screen, Urine Not Detected (NotDetected); Oxycodone Screen, Urine Not Detected (NotDetected)
[2025-02-18] MEDS ORDERED: DEXTROSE 50% SYRINGE 50 ML IVP PRN ×2 (14:46)
[2025-02-18 17:22] LABS: Glucose,Whole Blood 238 mg/dL (70-110)
[2025-02-18] MEDS: INSULIN LISPRO (HumaLOG) 100 UNIT/ML 10 mL VL SQ SCH (17:37)
[2025-02-18 22:24] LABS: Glucose,Whole Blood 130 mg/dL (70-110)
[2025-02-18] MEDS: cloZAPine 100 MG TAB PO SCH (22:24)
[2025-02-19] MEDS: ZIPRASIDONE 20 MG VIAL IM STA (04:10)
[2025-02-19 04:18] VITALS: BP 167/89; PULSE 108; RESP 17; TEMP 97.6
== END 2025-02-19 06:21 ==
LOC: EC 11:04
DX: F29 Unspecified psychosis not due to a substance or known physiological condition (principal); F17.200 Nicotine dependence, unspecified, uncomplicated; Z11.52 Encounter for screening for COVID-19
CPT/HCPCS: 82075; 36415; 80053; 85025; 81003; 80306; 80143; 87636; 80179; 99285; 96372; S0136; J3486